=== PATIENT | female | born 1965 ===

== ENCOUNTER 2020-06-19 06:11 | Inpatient (IN) | payer OTHER, SELFPAY ==
[2020-06-19] VITALS (14 sets, daily range): BP systolic 147–202; BP diastolic 57–90; PULSE 78–130; RESP 14–28; TEMP 36.4–36.9; O2SAT 97–100; BMI 55.9
--- NOTE | ~2020-06-19 | XR_ITS ---
EXAMINATION: XR CHEST CLINICAL INFORMATION: Shortness of breath. Rule out pneumonia. COMPARISON: Report chest radiograph 08/04/2013. TECHNIQUE: 2 views of the chest were obtained. FINDINGS: Diffuse vascular indistinctness and fine pulmonary reticular opacities are present in the lungs. No focal pulmonary consolidation is identified. No effusions or pneumothoraces are visualized. Mild thickening of the minor fissure is visualized. The cardiomediastinal silhouette is normal in configuration. Multiple external artifacts overlie the thorax. Partial visualization is made of at least moderate multilevel endplate osteophytosis of the thoracic spine. XR/XR chest 2V IMPRESSION: Diffuse vascular indistinctness and fine pulmonary reticular opacities. Findings are suspicious for mild pulmonary edema. Diffuse infection could have a similar appearance, though the radiographic appearance of findings is most suspicious for pulmonary edema.
--- NOTE | ~2020-06-19 | CT_ITS ---
EXAMINATION: CT ANGIOGRAM OF THE CHEST WITH AND WITHOUT CONTRAST (CT PULMONARY ANGIOGRAM FOR PE) CLINICAL INFORMATION: Reason for Exam Chest pain, shortness of breath, elevated D-dimer, COMPARISON: Chest radiograph 06/19/2020 TECHNIQUE: Prior to contrast administration, noncontrast localization images were obtained. Subsequently, multidetector volumetric imaging was performed from the thoracic inlet to below the diaphragms following the administration of 71 mL Omnipaque 350 intravenous contrast. No contrast reaction reported Sagittal, coronal, and MIP oblique sagittal reformatted images were obtained on the CT workstation, uploaded to PACS, and reviewed. This CT examination was performed using dose optimization techniques as appropriate, variously including the following: *Automated exposure control *Adjustment of mA and/or kV according to patient size (this includes techniques or standardized protocols for targeted exams where dose is matched to indication/reason for exam; i.e. extremities or head) *Use of iterative reconstruction technique Total exam dose-length product 563.72 mGy-cm FINDINGS: QUALITY OF STUDY/CONTRAST BOLUS: Relatively suboptimal. There is adequate opacification to the proximal segmental level. Beyond, evaluation is limited. PULMONARY ARTERIES: No central or segmental pulmonary emboli. THORACIC AORTA: No aneurysm or dissection. LUNG: There is bilateral interlobular septal thickening with a basilar predominance. There are scattered regions of groundglass opacity with a central and dependent distribution in a somewhat wedge-shaped morphology which is relatively suggestive of regions of air trapping or alveolar edema. There are small bilateral pleural effusions with adjacent volume loss and opacity most likely representing atelectasis. There is mild smooth thickening of the medium-sized airways. At the lateral aspect of the left base there is a 6 mm nodular opacity (image 336, series 6) PLEURA: Trace bilateral pleural effusions, right greater than left. MEDIASTINUM: The heart is at the upper limits of normal for size. There is no pericardial effusion or pericardial thickening. No evidence of septal bowing or right heart strain. There are several mildly prominent mediastinal lymph nodes. For reference these include There is an AP window lymph node (image 18, series 5) which measures 1 cm short axis, right hilar lymph node which measures 1 cm short axis (image 22, series 5) and a left hilar lymph node which measures 1 cm short axis (image 176, series 6). There are mildly prominent pretracheal lymph nodes as well, however given streak artifact in the superior vena cava, exact dimensions are difficult to define. CHEST WALL/AXILLA: No axillary or internal mammary lymphadenopathy. OSSEOUS STRUCTURES: Moderate multilevel changes of the imaged thoracic spine. There is no acute or aggressive bony abnormality. UPPER ABDOMEN: Unremarkable. No reflux of contrast into the hepatic veins to suggest elevated right heart pressures. CT/CT angio chest PE protocol IMPRESSION: No evidence of suggest pulmonary embolus. There is bilateral interlobular septal thickening, regions of groundglass opacity and mild smooth airways thickening which together are suggestive of a combination of interstitial and alveolar edema. Atypical viral infections may be a consideration as well. Prominent nonspecific mediastinal and bilateral hilar lymph nodes which may be reactive. 6 mm left lower lobe nodule According to the UPDATED 2017 Fleischner Society recommendations, the advised follow-up imaging for a single 6-8 mm solid nodule is: LOW RISK PATIENT: CT at 6-12 months, then consider CT at 18-24 months. HIGH RISK PATIENT: CT at 6-12 months, then at 18-24 months.
--- NOTE | ~2020-06-19 | US_ITS ---
EXAMINATION: US VENOUS ULTRASOUND WITH DOPPLER LOWER EXTREMITY, LEFT CLINICAL INFORMATION: Chest pain, shortness of breath, left leg swelling. Assess for occult DVT. COMPARISON: Report left leg venous ultrasound with Doppler 11/10/2005. TECHNIQUE: Ultrasound of the deep veins is performed from the hip to the calf with compression sonography and color and pulse Doppler assessment. Spectral analysis with color-flow imaging is performed. Exam is technically challenging related to patient body habitus. Curvilinear transducer required for imaging in lieu of the standard linear transducer for these exams. FINDINGS: There is normal venous compression and respiratory variation and augmented flow. The visualized common femoral vein, superficial femoral vein, profunda femoral vein, popliteal vein, and the trifurcation region shows no evidence of deep venous thrombosis. There is no significant popliteal fossa cyst. If the patient's symptoms persist, followup ultrasound in 5 days 7 days might be of value to exclude proximal propagation from a non-visualized calf vein. US/US venous duplex LE LT IMPRESSION: 1. No DVT demonstrated in the left lower extremity. 2. Patient study limitations.
--- NOTE | 2020-06-19 06:36 | ECG_ITS ---
Test Reason : SOB/CP Blood Pressure : / mmHG Vent. Rate : 112 BPM Atrial Rate : 112 BPM P-R Int : 156 ms QRS Dur : 090 ms QT Int : 350 ms P-R-T Axes : 051 037 067 degrees QTc Int : 477 ms Sinus tachycardia Nonspecific ST abnormality Abnormal ECG No previous ECGs available Referred By: Generic ED Physician Electronically Signed By:CLEMENTE PERALTA MD
--- NOTE | 2020-06-19 06:40 | PC.NURSE ---
field technical assistant at bedside to obtain EKG. IV established, labs obtained and sent. Pt also reporting chronic cellulitis to left lower leg, for years. Awaiting primary MD carver.
[2020-06-19 06:43] LABS: Hematocrit 25.2 % (37-47); Mean Corpuscular Volume 69.4 fL (80-98); NRBC Pct Auto 0.2 /100WBC (0.0-0.2); Red Blood Count 3.63 X10*6/uL (4.20-5.50)
[2020-06-19 06:46] LABS: Basophils Percent Auto 0.4 % (0-2); Eosinophils Absolute Auto 0.4 X10*3/uL (0.0-0.4); Eosinophils Percent Auto 4.4 % (0-4); Imm Gran Abs Auto 0.04 X10*3/uL (0.00-0.03); Imm Gran Pct Auto 0.4 % (0.0-0.4); Lymphocytes Absolute Auto 2.2 X10*3/uL (1.2-4.9); Lymphocytes Percent Auto 23.5 % (20-40); Mean Corpuscular Hemoglobin 18.7 pg (27.0-33.0); Mean Platelet Volume 10.9 fL (9.4-12.3); Monocytes Absolute Auto 0.8 X10*3/uL (0.1-1.2); Monocytes Percent Auto 8.3 % (2-11); Neutrophils Absolute Auto 5.9 X10*3/uL (2.0-8.3); Platelet Count 230 X10*3/uL (160-400); Red Cell Distribution Width 19.1 % (11.0-16.0); White Blood Count 9.3 X10*3/uL (4.8-10.8)
[2020-06-19 07:10] LABS: Anion Gap 13 (12-20); Blood Urea Nitrogen 17 mg/dL (9-16); Calcium 8.2 mg/dL (8.4-10.2); Carbon Dioxide 22 mmol/L (22-29); Chloride 104 mmol/L (96-108); Creatinine Clr Calc Pharmacy 108.5; Estimated Glomerular Filt Rate > 60; Glucose Random 168 mg/dL (60-115); Potassium 3.6 mmol/L (3.3-5.1); Sodium 135 mmol/L (135-145)
[2020-06-19 07:16] LABS: Troponin-I High Sensitivity 6.5 ng/L (<3.5-17.0)
[2020-06-19 07:16] LABS: INTERNATIONAL NORM RATIO 1.2 (0.9-1.1); Prothrombin Time 13.9 SEC (10.8-13.0)
[2020-06-19 07:19] LABS: D Dimer 363 NG/ML; Partial Thromboplastin Time 29.3 SEC (24.1-38.0)
--- NOTE | 2020-06-19 07:42 | ED.CHESTPAIN ---
HPI - Chest Pain General Chief Complaint: Chest Pain Stated Complaint: SOB Time Seen by Provider: 06/19/20 06:43 Source: patient Mode of arrival: ambulatory Limitations: language barrier (Patient's 1st language is Bulgarian, the [employer] assembly line worker was used to obtain history) History of Present Illness HPI narrative: 55-year-old female who presents emergency department for evaluation of chest pain and shortness of breath. She states the symptoms began yesterday at 5:00 p.m.. She states that she woke up from sleep with a tightness in her sternal area of her chest. She states that the tightness was intermittent and would last seconds. The tightness however would come on with minimal exertion. She also felt significant dyspnea on exertion with only minimal exertion. The pain did not radiate to her neck, jaw, arms or back. She had no associated lightheadedness, dizziness, diaphoresis, nausea or vomiting. She states that her episodes persisted therefore she came to the emergency department for evaluation. Patient states she has gained 40 lb over the last several months. She has a history of cellulitis of left lower extremity and she states her left leg is always slightly swollen compared to the right and her skin is always red on the left compared to the right. The patient states that she does have a history of anemia secondary to vaginal bleeding. She states that she gets head every menstrual periods each month but did not have a menstrual period last month. She states that she is taking iron supplements. The patient does have a history of hypertension hypothyroidism but is noncompliant with her medications. She also states that in November of 2019 she was seen at [facility] for dizziness and had a negative workup including an MRI. Related Data Home Medications Medication Instructions Recorded Confirmed amlodipine 1 tab PO DAILY 06/19/20 06/19/20 aspirin 1 tab PO DAILY 06/19/20 06/19/20 ferrous sulfate 1 tab PO DAILY 06/19/20 06/19/20 meclizine 1 tab PO TID PRN 06/19/20 06/19/20 Allergies Allergy/AdvReac Type Severity Reaction Status Date / Time No Known Allergies Allergy Verified 06/19/20 12:12 Review of Systems Review of Systems: Yes all other systems are reviewed and are negative Neurologic: Reports Abnormal speech present [facility] Past Medical History [facility] Narrative: Patient has a history of hypertension, hypothyroidism, anemia, cellulitis of the left lower extremity. She had a bilateral tubal ligation. She denies tobacco, alcohol and drug use. Medical History (Updated 06/19/20 @ 06:24 by Idania Camargo) Hypertension Vertigo Social History Social History Alcohol intake: unknown Smoked in Last 30 Days: No Use of substances other than those prescribed or required for medical reasons: No Advance Directives: No Physical Exam Vital Signs: Vital Signs: Last Vital Signs Temp 98.3 F 06/19/20 11:01 Pulse 78 06/19/20 12:11 Resp 20 06/19/20 12:11 BP 160/57 H 06/19/20 12:11 Pulse Ox 99 06/19/20 12:11 Body Mass Index 55.9 Const: General: cooperative Nutritional Appearance: obese morbidly obese Orientation/consciousness: oriented to person and oriented to place Limitations: no limitations HENMT: Head: Yes normal to inspection, Yes normocephalic and Yes atraumatic Ears: external ears normal General nose exam: Normal external nose present Face and sinus: Yes normal facial exam Mouth: Normal oral and palatal mucosa present Throat: Yes posterior oropharynx normal Eyes: Periorbital: periorbital findings normal Eyelids: Yes eyelids normal Conjunctivae: conjunctivae normal Sclerae: sclerae normal Corneas: corneas normal Pupils: Equal, round and reactive pupils present Direct Ophthalmoscopy: normal light reflex Neck: Neck: Yes full ROM, Yes no lymphadenopathy, Yes no meningeal signs, Yes trachea midline and Yes supple Chest: Chest palpation & inspection: normal inspection of the chest and normal palpation of entire chest wall Resp: Effort & Inspection: normal respiratory effort and able to speak in complete sentences Auscultation: clear to auscultation bilaterally Cardio: Rate: regular rate Rhythm: regular rhythm Heart sounds: S1 normal heart sound present, S2 normal heart sound present and no murmurs GI: Inspection: Yes normal to inspection Palpation (GI): Soft to palpation, nontender, no guarding, not rigid and No hepatosplenomegaly present Rectal Exam - Female: heme negative stool (Brown stool) : General: Yes no CVA tenderness Back/Spine/Pelvis: Back: no CVA tenderness Cervical Spine: normal cervical lordosis Thoracic/Lumbar Spine: thoracic and lumbar spine normal to inspection Skin: Lesions: no lesions Rashes: no rashes Wounds: no wounds Neuro: General: oriented to person, oriented to place and no meningeal signs Cranial nerves: Yes CN's II-XII intact bilaterally and Yes Equal, round and reactive pupils present Cognition (Neuro): normal cognition Speech: Abnormal speech present Motor exam (neuro): 5/5 motor strength present throughout Extrem: Other: Left lower extremity appears to be larger than the right, there is trace to 1+ tense pitting edema bilaterally symmetric, the left pretibial area appears to be erythematous compared to the right but is not warm to the touch. General: Yes full ROM Psych: Appearance: well kempt Mental Status: mental status grossly normal Speech and movement: Normal speech and movement present Affect: normal affect Attitude: cooperative Thought process: Normal thought process present Thought content: Normal thought content present Course Course Course Narrative: 55-year-old female with a history of hypertension, hypothyroidism anemia and cellulitis who has been noncompliant with her medications for at least 1-2 months who presents emergency department for evaluation of sudden onset of chest pain that occurred yesterday at 5:00 p.m.. The pain is intermittent, worse with breathing and she has associated dyspnea on exertion. Physical examination did reveal a morbidly obese woman who did have trace to 1+ pitting edema bilaterally symmetric with left lower extremity being slightly larger than the right with no evidence of cellulitis. I did order a CBC, CMP, TSH, D-dimer, troponin, EKG, chest x-ray, COVID swab on this patient. 0748: The patient is anemic with an H&H of 6.8 and 25.2, this is similar to an H&H of 6.8 and 25, dated 10/24/2019. The patient however is symptomatic with dyspnea on exertion and chest pain. The patient's initial high sensitivity troponin detectable but not elevated at 6.5. I will repeat this in 3 hours. Patient also has an elevated D-dimer therefore I ordered a CTA PE protocol to rule out PE and a left lower extremity duplex ultrasound to rule out DVT. I also ordered a type and screen on the patient. 1200: The patient's laboratory evaluation did reveal a detectable troponin of 6.5, 3 hour troponin was elevated to 9.9 which is greater than 50% change. This suggests that the patient may have had some myocardial injury possibly secondary to her anemia. The patient's TSH is high but she has been noncompliant with her thyroid medications. Doppler ultrasound of her left lower extremity revealed no DVT. The patient's CT angiogram PE protocol did not reveal any pulmonary embolism however patient does have increase interstitial markings in his suspect that she may have mild CHF. Her COVID-19 test was negative. The patient did agree to receiving 1 unit of packed red blood cells. I did order Lasix 40 mg IV as well. I will discuss the patient's presentation with the covering hospitalist. 1218: I did discuss the patient's presentation with the hospitalist Patricia Camacho and the patient will be admitted for further treatment and evaluation. MDM - Chest Pain Lab Data Result diagrams: 06/19/20 06:38 06/19/20 06:38 Labs: Lab Results 06/19/20 06/19/20 06/19/20 Range/Units 06:38 06:38 06:38 WBC 9.3 (4.8-10.8) X10*3/uL RBC 3.63 L (4.20-5.50) X10*6/uL Hgb 6.8 L* (12.0-16.0) g/dl Hct 25.2 L (37-47) % MCV 69.4 L (80-98) fL MCH 18.7 L (27.0-33.0) pg MCHC 27.0 L (31.0-35.0) g/dl RDW 19.1 H (11.0-16.0) % Plt Count 230 (160-400) X10*3/uL MPV 10.9 (9.4-12.3) fL Immature Gran % (Auto) 0.4 (0.0-0.4) % Neut % (Auto) 63.0 (45-73) % Lymph % (Auto) 23.5 (20-40) % [place] % (Auto) 8.3 (2-11) % Eos % (Auto) 4.4 H (0-4) % Baso % (Auto) 0.4 (0-2) % Lymph # (Auto) 2.2 (1.2-4.9) X10*3/uL [place] # (Auto) 0.8 (0.1-1.2) X10*3/uL Eos # (Auto) 0.4 (0.0-0.4) X10*3/uL Baso # (Auto) 0.0 (0.0-0.2) X10*3/uL Abs Immat Gran (auto) 0.04 H (0.00-0.03) X10*3/uL Absolute Neuts (auto) 5.9 (2.0-8.3) X10*3/uL Absolute Nucleated RBC 0.020 H (0.0-0.012) X10*3/uL Nucleated RBC % (auto) 0.2 (0.0-0.2) /100WBC Smear Tech's Comments Not Reportable PT (10.8-13.0) SEC INR (0.9-1.1) APTT (24.1-38.0) SEC D-Dimer NG/ML Hold Blue Top SEE NOTE Sodium 135 (135-145) mmol/L Potassium 3.6 (3.3-5.1) mmol/L Chloride 104 (96-108) mmol/L Carbon Dioxide 22 (22-29) mmol/L Anion Gap 13 (12-20) BUN 17 H (9-16) mg/dL Creatinine 0.85 (0.5-1.4) mg/dL Estim Creat Clear Calc 108.5 Estimated GFR > 60 Random Glucose 168 H (60-115) mg/dL Calcium 8.2 L (8.4-10.2) mg/dL Troponin I High Sens (<3.5-17.0) ng/L TSH 7.95 H (0.32-4.0) uIU/mL COVID-19 (GUERO) COVID-19 Clin Com Blood Type Antibody Screen Crossmatch 06/19/20 06/19/20 06/19/20 Range/Units 06:38 06:42 08:25 WBC (4.8-10.8) X10*3/uL RBC (4.20-5.50) X10*6/uL Hgb (12.0-16.0) g/dl Hct (37-47) % MCV (80-98) fL MCH (27.0-33.0) pg MCHC (31.0-35.0) g/dl RDW (11.0-16.0) % Plt Count (160-400) X10*3/uL MPV (9.4-12.3) fL Immature Gran % (Auto) (0.0-0.4) % Neut % (Auto) (45-73) % Lymph % (Auto) (20-40) % [place] % (Auto) (2-11) % Eos % (Auto) (0-4) % Baso % (Auto) (0-2) % Lymph # (Auto) (1.2-4.9) X10*3/uL [place] # (Auto) (0.1-1.2) X10*3/uL Eos # (Auto) (0.0-0.4) X10*3/uL Baso # (Auto) (0.0-0.2) X10*3/uL Abs Immat Gran (auto) (0.00-0.03) X10*3/uL Absolute Neuts (auto) (2.0-8.3) X10*3/uL Absolute Nucleated RBC (0.0-0.012) X10*3/uL Nucleated RBC % (auto) (0.0-0.2) /100WBC Smear Tech's Comments PT 13.9 H (10.8-13.0) SEC INR 1.2 H (0.9-1.1) APTT 29.3 (24.1-38.0) SEC D-Dimer 363 NG/ML Hold Blue Top Sodium (135-145) mmol/L Potassium (3.3-5.1) mmol/L Chloride (96-108) mmol/L Carbon Dioxide (22-29) mmol/L Anion Gap (12-20) BUN (9-16) mg/dL Creatinine (0.5-1.4) mg/dL Estim Creat Clear Calc Estimated GFR Random Glucose (60-115) mg/dL Calcium (8.4-10.2) mg/dL Troponin I High Sens 6.5 (<3.5-17.0) ng/L TSH (0.32-4.0) uIU/mL COVID-19 (GUERO) Cancelled COVID-19 Clin Com Cancelled Blood Type Antibody Screen Crossmatch 06/19/20 06/19/20 06/19/20 Range/Units 08:33 09:10 09:57 WBC (4.8-10.8) X10*3/uL RBC (4.20-5.50) X10*6/uL Hgb (12.0-16.0) g/dl Hct (37-47) % MCV (80-98) fL MCH (27.0-33.0) pg MCHC (31.0-35.0) g/dl RDW (11.0-16.0) % Plt Count (160-400) X10*3/uL MPV (9.4-12.3) fL Immature Gran % (Auto) (0.0-0.4) % Neut % (Auto) (45-73) % Lymph % (Auto) (20-40) % [place] % (Auto) (2-11) % Eos % (Auto) (0-4) % Baso % (Auto) (0-2) % Lymph # (Auto) (1.2-4.9) X10*3/uL [place] # (Auto) (0.1-1.2) X10*3/uL Eos # (Auto) (0.0-0.4) X10*3/uL Baso # (Auto) (0.0-0.2) X10*3/uL Abs Immat Gran (auto) (0.00-0.03) X10*3/uL Absolute Neuts (auto) (2.0-8.3) X10*3/uL Absolute Nucleated RBC (0.0-0.012) X10*3/uL Nucleated RBC % (auto) (0.0-0.2) /100WBC Smear Tech's Comments PT (10.8-13.0) SEC INR (0.9-1.1) APTT (24.1-38.0) SEC D-Dimer NG/ML Hold Blue Top Sodium (135-145) mmol/L Potassium (3.3-5.1) mmol/L Chloride (96-108) mmol/L Carbon Dioxide (22-29) mmol/L Anion Gap (12-20) BUN (9-16) mg/dL Creatinine (0.5-1.4) mg/dL Estim Creat Clear Calc Estimated GFR Random Glucose (60-115) mg/dL Calcium (8.4-10.2) mg/dL Troponin I High Sens 9.9 D (<3.5-17.0) ng/L TSH (0.32-4.0) uIU/mL COVID-19 (GUERO) Negative COVID-19 Clin Com See Note Blood Type A Positive Antibody Screen NEGATIVE Crossmatch See Detail Discharge Plan Discharge Prescriptions: No Action amlodipine 2.5 mg tablet 1 tab PO DAILY RF: 0 aspirin 81 mg tablet,delayed release (DR/EC) 1 tab PO DAILY RF: 0 meclizine 25 mg tablet 1 tab PO TID PRN (Reason: dizziness) RF: 0 ferrous sulfate 325 mg (65 mg iron) tablet 1 tab PO DAILY RF: 0
--- NOTE | 2020-06-19 08:00 | PC.NURSE ---
report received from Idania GUSMAN. Patient arrived complaining of SOB and chest tightness with exertion. Patient is alert and oriented. Tachycardic in 120-130's when walking to room. Patient reports vaginal bleeding x 2 years, but stopped last months. Reports as heavy with clots, but only going through ~ 3 pads per day. IV established by prior RN. Provider at bedside. Stool occult sample collected and negative. Patient reports comfort while resting on stretcher. Second IV established in right wrist at this time. Pharmacy Delivery Driver at bedside to discuss plan of care.
[2020-06-19 08:28] LABS: Hemoglobin 6.8 g/dl (12.0-16.0)
[2020-06-19 08:30] LABS: Thyroid Stimulating Hormone 7.95 uIU/mL (0.32-4.0)
[2020-06-19 09:31] LABS: COVID-19 Test Negative (Negative)
--- NOTE | 2020-06-19 10:01 | PC.NURSE ---
Repeat Troponin drawn by lead pharmacy technician. Patient tolerated well. Patient consents to blood transfusion, awaiting blood bank at this time. Patient reports comfort. VSS. No SOB while resting on stretcher. Will continue to monitor.
--- NOTE | 2020-06-19 10:48 | PC.NURSE ---
Teresa RN at bedside with this RN. Patient identification and blood checked per protocol. Vitals taken. Lungs clear throughout. Signed consent form on file. Patient educated on signs and symptoms of transfusion reaction. Resting comfortably on stretcher at this time. This RN will remain at bedside for first 15 minutes.
[2020-06-19 11:23] LABS: Troponin-I High Sensitivity 9.9 ng/L (<3.5-17.0)
--- NOTE | 2020-06-19 11:32 | PC.NURSE ---
PT TOLERATING BLOOD TRANSFUSION WELL AT THIS TIME, NO COMPLAINTS OFFERED. REPORTS SHE HAS NOT HAD A PCP, AND HAS NOT TAKEN ANY OF HER RXS IN ABOUT 2 MONTHS. MED REC COMPLETED TO REFLECT THIS.
[2020-06-19] MEDS: Furosemide 20 MG/2 ML VIAL IVPUSH (12:12)
[2020-06-19 13:04] LABS: B Type Natriuretic Peptide 90 pg/mL (<100)
--- NOTE | 2020-06-19 13:48 | P.HPHOSP_ITS ---
History of Present Illness Date of Service: 06/19/20 Chief Complaint: dyspnea This is a 45-year-old female who presents to the emergency department with dyspnea. For the past few weeks she has reported dyspnea on exertion. She also reports chest tightness with exertion and deep inspiration. She denies orthopnea, but she sleeps on an incline which she has been doing for the past several years. She has gained 40 lb over the past several months. Lab work reveals H/H of 6.8/45.2. She reports heavy periods every month. She has never seen [facility] expert [facility] for workup. Troponin 6.5, repeat 9.9. TSH 7.95. Imaging suggestive of pulmonary edema. She was given a dose of IV Lasix. Blood pressure also noted to be elevated. Patient reports not taking her blood pressure medicine for the past 2 months. Review of Systems Review of Systems: Yes all other systems are reviewed and are negative Constitutional: Constitutional: Denies chills and Denies fever(s) Cardiovascular: Cardiovascular: Reports dyspnea on exertion Respiratory: Respiratory: Denies cough and Reports dyspnea on exertion Gastrointestinal: Gastrointestinal: Denies abdominal pain Genitourinary: Genitourinary: Reports menorrhagia [facility] Medical History (Updated 06/19/20 @ 14:01 by TOSIN Epps) Hypertension Menorrhagia Morbid obesity with BMI of 50.0-59.9, adult Vertigo Functional capacity: independent ambulation Family History Other No cardiac disease Family history: reviewed and not pertinent Surgical History (Updated 06/19/20 @ 14:01 by TOSIN Epps) H/O tubal ligation Social History (Updated 06/19/20 @ 14:01 by TOSIN Epps) Alcohol intake: never Smoking Status: Never smoker Smoked in Last 30 Days: No Use of substances other than those prescribed or required for medical reasons: No Advance Directives: No Meds Allergies Allergy/AdvReac Type Severity Reaction Status Date / Time No Known Allergies Allergy Verified 06/19/20 12:12 Active Medications: Current Medications Generic Name Dose Route Start Last Admin Trade Name Freq PRN Reason Stop Dose Admin Amlodipine Besylate 10 mg 06/19/20 13:45 Amlodipine Besylate 5 Mg Tablet PO DAILY [facility] Protocol Pharmacy Consult 1 each 06/19/20 12:21 Consult Rx Perform Med Rec MISCELLANE ONCE PRN Consult order Home Medications Medication Instructions Recorded Confirmed Last Taken Type amlodipine 1 tab PO DAILY 06/19/20 06/19/20 2 Months Ago History ~04/21/20 aspirin 1 tab PO DAILY 06/19/20 06/19/20 2 Months Ago History ~04/21/20 ferrous sulfate 1 tab PO DAILY 06/19/20 06/19/20 2 Months Ago History ~04/21/20 meclizine 1 tab PO TID PRN 06/19/20 06/19/20 2 Months Ago History ~04/21/20 Physical Exam Vital Signs and Narrative: Vital Signs: Last Vital Signs Temp 98.3 F 06/19/20 11:01 Pulse 83 06/19/20 13:01 Resp 16 06/19/20 13:01 BP 190/90 H 06/19/20 13:01 Pulse Ox 99 06/19/20 12:11 Body Mass Index 55.9 Const: General: comfortable, no acute distress, alert and awake Nutritional Appearance: obese Orientation/consciousness: patient oriented x3 HENMT: Head: Yes normocephalic and Yes atraumatic Eyes: Sclerae: sclerae normal Chest: Chest palpation & inspection: normal inspection of the chest Resp: Effort & Inspection: normal respiratory effort and no respiratory distress Auscultation: clear to auscultation bilaterally Cardio: Rate: regular rate Rhythm: regular rhythm GI: Palpation (GI): Soft to palpation and nontender Skin: General skin exam: no rashes or lesions noted Neuro: General: patient oriented x3 Cranial nerves: Yes CN's II-XII intact bilaterally and Yes Bilaterally intact EOM present Extrem: Other: b/l pitting edema General: Yes normal to inspection Results Labs CBC and Chem 7: 06/19/20 06:38 06/19/20 06:38 Labs: Laboratory Results - last 24 hr 06/19/20 06/19/20 06/19/20 06:38 06:38 06:38 MCV 69.4 L MCH 18.7 L MCHC 27.0 L RDW 19.1 H Plt Count 230 MPV 10.9 Immature Gran % (Auto) 0.4 Neut % (Auto) 63.0 Lymph % (Auto) 23.5 [place] % (Auto) 8.3 Eos % (Auto) 4.4 H Baso % (Auto) 0.4 Lymph # (Auto) 2.2 [place] # (Auto) 0.8 Eos # (Auto) 0.4 Baso # (Auto) 0.0 Abs Immat Gran (auto) 0.04 H Absolute Neuts (auto) 5.9 Absolute Nucleated RBC 0.020 H Nucleated RBC % (auto) 0.2 Smear Tech's Comments Not Reportable PT INR APTT D-Dimer Hold Blue Top SEE NOTE Anion Gap 13 Estim Creat Clear Calc 108.5 Estimated GFR > 60 Random Glucose 168 H Calcium 8.2 L Troponin I High Sens B-Natriuretic Peptide TSH 7.95 H COVID-19 ([facility]ERO) COVID-19 Clin Com Blood Type Antibody Screen Crossmatch 06/19/20 06/19/20 06/19/20 06:38 06:42 08:25 MCV MCH MCHC RDW Plt Count MPV Immature Gran % (Auto) Neut % (Auto) Lymph % (Auto) [place] % (Auto) Eos % (Auto) Baso % (Auto) Lymph # (Auto) [place] # (Auto) Eos # (Auto) Baso # (Auto) Abs Immat Gran (auto) Absolute Neuts (auto) Absolute Nucleated RBC Nucleated RBC % (auto) Smear Tech's Comments PT 13.9 H INR 1.2 H APTT 29.3 D-Dimer 363 Hold Blue Top Anion Gap Estim Creat Clear Calc Estimated GFR Random Glucose Calcium Troponin I High Sens 6.5 B-Natriuretic Peptide TSH COVID-19 (GUERO) Cancelled COVID-19 Clin Com Cancelled Blood Type Antibody Screen Crossmatch 06/19/20 06/19/20 06/19/20 08:33 09:10 09:57 MCV MCH MCHC RDW Plt Count MPV Immature Gran % (Auto) Neut % (Auto) Lymph % (Auto) [place] % (Auto) Eos % (Auto) Baso % (Auto) Lymph # (Auto) [place] # (Auto) Eos # (Auto) Baso # (Auto) Abs Immat Gran (auto) Absolute Neuts (auto) Absolute Nucleated RBC Nucleated RBC % (auto) Smear Tech's Comments PT INR APTT D-Dimer Hold Blue Top Anion Gap Estim Creat Clear Calc Estimated GFR Random Glucose Calcium Troponin I High Sens 9.9 D B-Natriuretic Peptide 90 TSH COVID-19 (GUERO) Negative COVID-19 Clin Com See Note Blood Type A Positive Antibody Screen NEGATIVE Crossmatch See Detail Imaging Radiologist's Impressions: Impressions Chest X-Ray 06/19/20 06:53 IMPRESSION: Diffuse vascular indistinctness and fine pulmonary reticular opacities. Findings are suspicious for mild pulmonary edema. Diffuse infection could have a similar appearance, though the radiographic appearance of findings is most suspicious for pulmonary edema. Chest CTA 06/19/20 07:40 IMPRESSION: No evidence of suggest pulmonary embolus. There is bilateral interlobular septal thickening, regions of groundglass opacity and mild smooth airways thickening which together are suggestive of a combination of interstitial and alveolar edema. Atypical viral infections may be a consideration as well. Prominent nonspecific mediastinal and bilateral hilar lymph nodes which may be reactive. 6 mm left lower lobe nodule According to the UPDATED 2017 Fleischner Society recommendations, the advised follow-up imaging for a single 6-8 mm solid nodule is: LOW RISK PATIENT: CT at 6-12 months, then consider CT at 18-24 months. HIGH RISK PATIENT: CT at 6-12 months, then at 18-24 months. Venous Duplex 06/19/20 07:40 IMPRESSION: 1. No DVT demonstrated in the left lower extremity. 2. Patient study limitations. Assessment and Plan (1) Chest pain: Qualifiers: Chest pain type: unspecified Qualified Code(s): R07.9 - Chest pain, unspecified Status: Acute (2) Anemia: Qualifiers: Anemia type: iron deficiency Iron deficiency anemia type: unspecified iron deficiency Qualified Code(s): D50.9 - Iron deficiency anemia, unspecified Status: Acute (3) Elevated troponin: Status: Acute (4) CHF (congestive heart failure): Qualifiers: Heart failure chronicity: acute Heart failure type: unspecified Qualified Code(s): I50.9 - Heart failure, unspecified Status: Acute This is a 55-year-old Telugu-speaking female with a history of hypertension, menorrhagia presents to the emergency department with dyspnea and chest tightness found to have anemia Symptomatic anemia anemia chronic r/t menorrhagia No active bleeding. H/H similar to previous from October 2019 -1U blood transfused in ED -follow CBC -will need outpatient [employer] evaluation Dyspnea Likely multifactorial ?high output failure in setting of anemia, uncontrolled HTN, morbid obesity with significant recent weight gain pulmonary edema on imaging although BNP 90, ?falsely low due to obesity CTA neg for PE Trop 6.5, 9.9 -echo -trend troponin -continue IV diuresis based on clinical response HTN Uncontrolled in the setting of medication noncompliance -resume Norvasc at higher dose, 10 mg daily -monitor blood pressure closely, may need additional agent Hypothyroidism Non-compliant with meds TSH 7.95 -check free t4 Pulmonary nodule -outpatient follow up imaging Morbid obesity BMI 56.0 Likely contributing to dyspnea Likely underlying undiagnosed SASCHA, consider outpatient sleep study dvt ppx - mechanical devices code status - full code this case was discussed with Dr. cabrera
[2020-06-19 14:01] LABS: MANUAL DIFF FLAG NO
[2020-06-19 14:04] LABS: Basophils Percent Auto 0.4 % (0-2); Eosinophils Absolute Auto 0.3 X10*3/uL (0.0-0.4); Eosinophils Percent Auto 3.6 % (0-4); Hematocrit 30.2 % (37-47); Hemoglobin 8.4 g/dl (12.0-16.0); Imm Gran Abs Auto 0.05 X10*3/uL (0.00-0.03); Imm Gran Pct Auto 0.5 % (0.0-0.4); Lymphocytes Absolute Auto 2.3 X10*3/uL (1.2-4.9); Lymphocytes Percent Auto 24.5 % (20-40); Mean Corpuscular HGB Conc 27.8 g/dl (31.0-35.0); Mean Corpuscular Hemoglobin 19.8 pg (27.0-33.0); Mean Corpuscular Volume 71.2 fL (80-98); Monocytes Absolute Auto 0.7 X10*3/uL (0.1-1.2); Monocytes Percent Auto 7.5 % (2-11); NRBC Pct Auto 0.2 /100WBC (0.0-0.2); Neutrophils Absolute Auto 5.9 X10*3/uL (2.0-8.3); Neutrophils Percent Auto 63.5 % (45-73); Platelet Count 247 X10*3/uL (160-400); Red Blood Count 4.24 X10*6/uL (4.20-5.50); Red Cell Distribution Width 20.3 % (11.0-16.0); White Blood Count 9.3 X10*3/uL (4.8-10.8)
[2020-06-19] MEDS: amLODIPine Besylate 5 MG TABLET 10 MG PO (14:07)
--- NOTE | 2020-06-19 14:27 | PC.NURSE ---
PT CURRENTLY DENIES ANY CP, DESCRIBES FEELING CHEST PRESSURE WHILE AMBULATING, NO CHANGES AT REST. PT HAS AMBULATED TO THE BATHROOM, STEADILY, INDEPENDENTLY. CURRENTLY EATING LUNCH. NO COMPLAINTS OR CONCERNS OFFERED. AWAITING BED ASSIGNMENT.
[2020-06-19 14:33] LABS: Free T4 (Free Thyroxine) 0.83 ng/dL (0.71-1.85)
[2020-06-19 15:18] LABS: Troponin-I High Sensitivity 13.7 ng/L (<3.5-17.0)
[2020-06-19] MEDS: 0.9 % Sodium Chloride Flush 3 ML SYRINGE IVFLUSH ×2 (17:14→22:46)
--- NOTE | 2020-06-19 19:43 | PC.NURSE ---
CALLED [facility] TO GIVE REPORT, EXPECTING CALL BACK
--- NOTE | 2020-06-19 20:52 | PC.NURSE ---
ls remain clear. pt comfortable, no complaints offered. awaiting transport to floor
[2020-06-20 03:41] VITALS: BP 150/69; PULSE 77; RESP 16; TEMP 36.6; O2SAT 97
[2020-06-20 06:46] LABS: MANUAL DIFF FLAG NO
[2020-06-20 06:53] LABS: Basophils Absolute Auto 0.1 X10*3/uL (0.0-0.2); Basophils Percent Auto 0.5 % (0-2); Eosinophils Absolute Auto 0.5 X10*3/uL (0.0-0.4); Eosinophils Percent Auto 5.7 % (0-4); Hematocrit 27.6 % (37-47); Hemoglobin 7.6 g/dl (12.0-16.0); Imm Gran Abs Auto 0.03 X10*3/uL (0.00-0.03); Imm Gran Pct Auto 0.3 % (0.0-0.4); Lymphocytes Absolute Auto 2.7 X10*3/uL (1.2-4.9); Mean Corpuscular HGB Conc 27.5 g/dl (31.0-35.0); Mean Corpuscular Hemoglobin 19.6 pg (27.0-33.0); Mean Corpuscular Volume 71.3 fL (80-98); Mean Platelet Volume 11.7 fL (9.4-12.3); Monocytes Absolute Auto 0.9 X10*3/uL (0.1-1.2); Monocytes Percent Auto 10.1 % (2-11); Neutrophils Percent Auto 54.4 % (45-73); Platelet Count 246 X10*3/uL (160-400); Red Blood Count 3.87 X10*6/uL (4.20-5.50); White Blood Count 9.2 X10*3/uL (4.8-10.8)
[2020-06-20 07:19] LABS: Anion Gap 11 (12-20); Blood Urea Nitrogen 17 mg/dL (9-16); Calcium 8.3 mg/dL (8.4-10.2); Carbon Dioxide 26 mmol/L (22-29); Chloride 103 mmol/L (96-108); Creatinine Clr Calc Pharmacy 113.9; Estimated Glomerular Filt Rate > 60; Glucose Random 113 mg/dL (60-115); Potassium 4.1 mmol/L (3.3-5.1); Sodium 136 mmol/L (135-145)
[2020-06-20 08:00] VITALS: BP 142/60; PULSE 79; RESP 16; TEMP 36.6; O2SAT 97
[2020-06-20] MEDS: 0.9 % Sodium Chloride Flush 3 ML SYRINGE IVFLUSH ×2 (08:06→17:12)
[2020-06-20] MEDS: Ferrous Sulfate 324 MG TABLET.DR PO (08:06)
[2020-06-20] MEDS: amLODIPine Besylate 5 MG TABLET 10 MG PO (08:06)
--- NOTE | 2020-06-20 11:03 | MHC.CM.PN ---
dc plan home no servceis ,pt has own transportation home
--- NOTE | 2020-06-20 11:56 | P.CDIC_ITS ---
CDI Concurrent Query Service Date: 06/20/20 Documentation Clarification: Please clarify if you are treating a proba ble/suspected/likely or confirmed: Specifics: Acute on chronic diastolic and/or systolic CHF Chronic diastolic and/or systolic CHF Please specify if known or other Unknown at this time. Work up in progress. Provider Response: Other Other Diagnosis: Unknown yet, work up in progress PLEASE DO NOT DELETE/MODIFY EXISTING CONTENT Additional information is needed in order to code to the highest accuracy and appropriate Severity of Illness (SOI). Please clarify the information noted mike davis in your progress notes and discharge summary. Risk Factors/Clinical Indicators/Treatments Assessment - CHF, unspecified IV Lasix Edema, OLMSTEAD, SOB, gained 40lbs over a month, pitting edema, pulmonary edema, may have CHF Morbid obesity BMI 56 CDS: Feli Galarza CCS, [facility]IS Contact Number: [phone] Please Review the information above and exercise your independent professional judgment in responding to the query. If you concur, pleas document in the PROGRESS NOTES and DISCHARGE SUMMARY. If you do not agree with the query, please document in the query above. THIS QUERY IS PART OF THE PERMANENT MEDICAL RECORD
[2020-06-20 12:00] VITALS: BP 173/81; PULSE 81; RESP 20; TEMP 37.2; O2SAT 100
--- NOTE | 2020-06-20 12:19 | HO.PM.IMPN ---
Subjective Subjective Date of Service: 06/20/20 Interval History: Follow-up symptomatic anemia, dyspnea Shortness of breath resolved, no chest pain or No vaginal bleeding No overnight events Review of Systems Review of Systems: Yes all other systems are reviewed and are negative Constitutional Constitutional: Denies chills and Denies fever(s) Cardiovascular Cardiovascular: Denies chest pain Respiratory Respiratory: Denies cough Gastrointestinal Gastrointestinal: Denies abdominal pain Neurologic Neurologic: Reports Abnormal speech present Physical Exam Vital Signs: Vital Signs: Last Vital Signs Temp 98.9 F 06/20/20 12:00 Pulse 81 06/20/20 12:00 Resp 20 06/20/20 12:00 BP 173/81 H 06/20/20 12:00 Pulse Ox 100 06/20/20 12:00 Body Mass Index 55.9 Const: General: comfortable, no acute distress, alert and awake Nutritional Appearance: obese Orientation/consciousness: patient oriented x3 HENMT: Head: Yes normocephalic and Yes atraumatic Eyes: Sclerae: sclerae normal Chest: Chest palpation & inspection: normal inspection of the chest Resp: Effort & Inspection: normal respiratory effort and no respiratory distress Auscultation: clear to auscultation bilaterally Cardio: Rate: regular rate Rhythm: regular rhythm GI: Palpation (GI): Soft to palpation and nontender Skin: General skin exam: no rashes or lesions noted Neuro: General: patient oriented x3 Cranial nerves: Yes CN's II-XII intact bilaterally and Yes Bilaterally intact EOM present Speech: Abnormal speech present Extrem: General: Yes normal to inspection Objective Data Current Medications Generic Name Dose Route Start Last Admin Trade Name Freq PRN Reason Stop Dose Admin Acetaminophen 650 mg 06/19/20 14:03 Acetaminophen 325 Mg Tablet PO Q6H PRN Pain, Mild (Pain Scale 1-3) Amlodipine Besylate 10 mg 06/19/20 13:45 06/20/20 08:06 Amlodipine Besylate 5 Mg Tablet PO 10 mg DAILY LANI Administration Protocol Docusate Sodium 100 mg 06/19/20 14:03 Docusate Sodium 100 Mg Capsule PO DAILY PRN Constipation Ferrous Sulfate 324 mg 06/20/20 09:00 06/20/20 08:06 Ferrous Sulfate 324 Mg Tablet. PO 324 mg DAILY LANI Administration Ondansetron HCl 4 mg 06/19/20 14:03 Ondansetron Hcl 4 Mg/2 Ml Vial IVPUSH Q8H PRN Nausea and Vomiting Pharmacy Consult 1 each 06/19/20 12:21 Consult Rx Perform Med Rec MISCELLANE ONCE PRN Consult order Sodium Chloride 3 ml 06/19/20 16:00 06/20/20 08:06 0.9 % Sodium Chloride Flush 3 Ml Syringe IVFLUSH 3 ml QSHIFT LANI Administration Labs CBC & Chem 7: 06/20/20 05:26 06/20/20 05:26 Assessment and Plan (1) Chest pain: Status: Acute (2) Anemia: Status: Acute (3) Elevated troponin: Status: Acute (4) CHF (congestive heart failure): Status: Acute Assessment and Plan: This is a 55-year-old [place] Citizen-speaking female with a history of hypertension, menorrhagia presents to the emergency department with dyspnea and chest tightness found to have anemia Symptomatic anemia anemia chronic r/t menorrhagia No active bleeding. H/H similar to previous from October 2019 -s/p 1U blood transfused in ED 06/19 -follow CBC -will need outpatient [employer] C[employer]WYER evaluation Dyspnea Likely multifactorial ?high output failure in setting of anemia, uncontrolled HTN, morbid obesity with significant recent weight gain pulmonary edema on imaging although BNP 90, ?falsely low due to obesity CTA neg for PE Trop 6.5, 9.9, 13.7 likely demand in the setting of anemia -echo pending -continue IV diuresis based on clinical response HTN Uncontrolled in the setting of medication noncompliance -resume Norvasc at higher dose, 10 mg daily -monitor blood pressure closely, may need additional agent Hypothyroidism Non-compliant with meds TSH 7.95 -check free t4 Pulmonary nodule -outpatient follow up imaging Morbid obesity BMI 56.0 Likely contributing to dyspnea Likely underlying undiagnosed SASCHA, consider outpatient sleep study dvt ppx - mechanical devices code status - full code this case was discussed with Dr. cabrera
[2020-06-20] MEDS: Furosemide 40 MG/4 ML VIAL IVPUSH (13:16)
[2020-06-20 13:24] LABS: Hematocrit 30.7 % (37-47)
[2020-06-20 13:25] LABS: Hemoglobin 8.6 g/dl (12.0-16.0)
--- NOTE | 2020-06-20 13:52 | CA_ITS ---
Transthoracic Echocardiogram Patient (Last, First, Middle): Tequila Javier, Gender: Female Date of : 1965 Age: 55 Procedure Date: 06/20/2020 Procedure Type: Transthoracic Echocardiogram Location: [facility] [place] Height: 162.56 cm Weight: 147.42 kg BSA: 2.40 m2 Heart Rate: bpm BP: 134 / 80 mmHg Laborer Landscape: BRIAN Anderson MD: Patricia LEAHY Steel Barrel Reamer: Jere Toribio MD Symptoms: pulmonary edema, dyspnea Study Quality: Technically Difficult ECG Rhythm: Sinus Conclusions: - 1. Normal LV systolic function with mild LVH with pseudonormal filling pattern 2. Limited evaluation of cardiac valves with at least mild-to moderate mitral regurgitation 3. Normal RV systolic pressure 4. No pericardial effusion Findings Procedure Information Contrast agent, definity, is being given per protocol without apparent complications. Left Ventricle Normal left ventricular size and systolic function. There is mildly increased left ventricular wall thickness. The visually estimated ejection fraction is between 60-65%. There is no evidence of regional wall motion abnormalities. Spectral Doppler is indicative of a pseudonormal filling pattern. Right Ventricle The right ventricle was not well visualized. Atria The left atrium is likely dilated. Interatrial shunt cannot be excluded. The right atrium was not well visualized. Aortic Valve The aortic valve was not well visualized. There is no aortic valve stenosis. There is no aortic valve regurgitation. Mitral Valve The mitral valve was not well visualized. There is mild to moderate mitral valve regurgitation. There is no mitral valve stenosis. Pulmonic Valve The pulmonic valve was not well visualized. Tricuspid Valve The tricuspid valve was not well visualized. There is mild tricuspid valve regurgitation. The right ventricular systolic pressure is normal. There is no evidence of pulmonary hypertension. Great Vessels The aorta was not well visualized. The pulmonary artery was not well visualized. Venous The inferior vena cava was not well visualized. Pericardium/Pleural The pericardium was not well visualized. Prior Study Comparison No prior study available for comparison. Measurements 2D Linear Measurements IVSd: 1.40 0.6-0.9/0.6-1.0 cm LVIDd: 5.17 3.9-5.3/4.2-5.9 cm LVIDd Index: 2.15 2.4-3.2/2.2-3.1 cm/m2 LVIDs: 3.28 2.0-3.6 cm LVPWd: 1.34 0.7-1.1 cm Ao Root: 2.60 2.1-3.5 cm LA Diam: 4.00 2.7-3.8/3.0-4.0 cm LAIDs Index: 1.67 1.5-2.3 cm/m2 LV Mass: 370.99 67-162/88-224 g LV Mass Index: 154.58 43-95/49-115 g/m2 LVOT Diam: 2.30 3.0+(-)1.3 cm Mitral Valve MV Pk E: 1.16 MV PK A: 0.58 MV Decel Time: 144.00 E/A: 2.00 E'Lateral: 9.86 E'Medial: 9.09 E/E' Med: 12.80 E/E' Lat: 11.80 PHT: 42.00 MVA PHT: 5.24 Decel [place]: 8.03 Aortic Valve AoV Pk Doc: 1.65 AoV Mn Doc: 1.11 AoV VTI: 0.36 AoV Pk Grad: 11.00 Aov Mn Grad: 6.00 CRISELDA Cont.VTI: 2.91 LVOT LVOT Pk Doc: 1.15 LVOT Mn Doc: 0.83 LVOT VTI: 0.25 LVOT Pk Grad: 5.00 LVOT Mn Grad: 3.00 LVOT Diam: 2.30 LVOT Area: 4.15 Diastolic Function MV Pk E: 1.16 MV Pk A: 0.58 E/A: 2.00 E'Medial: 9.09 E/E' Med: 12.80 E' Laterial: 9.86 E/E' Lat: 11.80 Tricuspid Valve TR Pk Doc: 2.58 TR Pk Grad: 27.00 RA Press: 3.00 RVSP: 30.00 Great Vessels Aorta Ao Root-2D: 2.60 2.0-3.7 cm Ao Asc: 3.00 2.1-3.4 cm Pulmonary Valve PV Pk Doc: 1.10 Peak PV Grad: 5.00 Updated in Other Vendor System with Status of Final Jere Toribio MD electronically signed on 06/20/2020 2:14:18 PM with status of Final
[2020-06-20 15:14] VITALS: BP 169/79; PULSE 82; RESP 19; TEMP 35.9; O2SAT 100
--- NOTE | 2020-06-20 16:10 | PM.DS ---
DS: Providers Provider Date of Service: 06/20/20 Date of admission: 06/19/20 13:45 Primary care physician: None Physician DS: Diagnosis Discharge Diagnosis (1) Symptomatic anemia: Status: Acute (2) Shortness of breath: Status: Acute (3) Morbid obesity: Status: Acute (4) Pulmonary nodule: Status: Acute (5) Subclinical hypothyroidism: Status: Acute (6) CHF (congestive heart failure): Status: Acute Problem details: ruled out DS: Medications Discharge Medications Home Medications: Home Medications Medication Instructions Recorded Confirmed aspirin 1 tab PO DAILY 06/19/20 06/19/20 meclizine 1 tab PO TID PRN 06/19/20 06/19/20 Previous Rx's Medication Instructions Recorded amlodipine 10 mg PO DAILY #30 tab 06/20/20 ferrous sulfate 1 tab PO DAILY #30 tab 06/20/20 furosemide [Lasix] 20 mg PO DAILY #30 tab 06/20/20 DS: Summary Hospital Course Hospital Course: Patient was admitted for multiple reasons. She underwent a blood transfusion and H&H remained stable post transfusion. She was empirically treated for congestive heart failure with IV Lasix and was evaluated with a 2D echo which was a technically limited study but showed preserved left ventricular ejection fraction. As her blood counts improved and she was diuresed her shortness of breath and chest pain both resolved. She will be discharged home on oral Lasix 20 mg daily, iron supplementation. Additionally, her blood pressure was also elevated in the hospital and she had reported that she had stop taking her blood pressure meds for more than 2 months as she did not have a current PCP. Additionally she also has not taken any medications for her reported thyroid disease. Al in all, the patient was educated on the importance of finding and following up with a primary care doctor. She has been given 1 month supply of her current medications. She has also been told about her lung nodule which she needs to follow up with when she obtains a PCP. Time Spent with Patient Time attestation: Total time spent providing and/or coordinating discharge services: Discharge coordination time: Greater than 30 minutes Physical Exam Vital Signs: Vital Signs: Last Vital Signs Temp 96.6 F L 06/20/20 15:14 Pulse 82 06/20/20 15:14 Resp 19 06/20/20 15:14 BP 169/79 H 06/20/20 15:14 Pulse Ox 100 06/20/20 15:14 Body Mass Index 55.9 Const: Other: Constitutional - Awake and Alert, No apparent distress Eyes - PERRLA, EOMI Cardiovascular - S1S2, RRR, No edema Respiratory - Normal lung expansion, Normal respiratory effort, No respiratory distress, CTA bilaterally Gastrointestinal - NT / ND; +BS; No rebound or guarding - No CVA tenderness Extremities - 1+ pitting edema. Musculoskeletal - Normal inspection, normal ROM Skin - Warm/Dry Neurological - Alert & oriented x3, No focal deficit Psychological - Appropriate affect DS: Data Data Completed and Pending Labs on day of discharge: Laboratory Results - last 24 hr 06/20/20 06/20/20 06/20/20 05:26 05:26 13:15 WBC 9.2 RBC 3.87 L Hgb 7.6 L 8.6 L Hct 27.6 L 30.7 L MCV 71.3 L MCH 19.6 L MCHC 27.5 L RDW 20.0 H Plt Count 246 MPV 11.7 Immature Gran % (Auto) 0.3 Neut % (Auto) 54.4 Lymph % (Auto) 29.0 [place] % (Auto) 10.1 Eos % (Auto) 5.7 H Baso % (Auto) 0.5 Lymph # (Auto) 2.7 [place] # (Auto) 0.9 Eos # (Auto) 0.5 H Baso # (Auto) 0.1 Abs Immat Gran (auto) 0.03 Absolute Neuts (auto) 5.0 Absolute Nucleated RBC 0.000 Nucleated RBC % (auto) 0.0 Sodium 136 Potassium 4.1 Chloride 103 Carbon Dioxide 26 Anion Gap 11 L BUN 17 H Creatinine 0.81 Estim Creat Clear Calc 113.9 Estimated GFR > 60 Random Glucose 113 Calcium 8.3 L Discharge Plan Discharge Patient Disposition: Home, Self-Care Referrals: Physician,None [Primary Care Provider] - Discharge Medications: New amlodipine 5 mg Tablet 10 mg PO DAILY Qty: 30 RF: 0 furosemide [Lasix] 20 mg tablet 20 mg PO DAILY Qty: 30 RF: 0 Continued aspirin 81 mg tablet,delayed release (DR/EC) 1 tab PO DAILY RF: 0 meclizine 25 mg tablet 1 tab PO TID PRN (Reason: dizziness) RF: 0 ferrous sulfate 325 mg (65 mg iron) tablet 1 tab PO DAILY Qty: 30 RF: 0 Discontinued amlodipine 2.5 mg tablet 1 tab PO DAILY RF: 0 Discharge Orders: Discharge Order (Routine); Ordered 06/20/20 Ordered By: Les Brownlee Diet: advance to usual diet Activity on Discharge: As tolerated Stand Alone Forms: Patient Portal Discharge page Care Plan Goals: To stay healthy and out of the hospital. Health Concerns: Anemia Difficulty breathing High Blood pressure Plan of Treatment: Take Iron for your low blood counts. Follow up with Flour Tester. Find and follow up with a PCP Take Amlodipine 10mg daily and Lasix 20mg daily
== END 2020-06-20 05:45 | disposition home or self-care (01) | DRG 663 ==
LOC: HO.ED 12:21 → HO.EDOVER 14:16 → HO.IMC 19:24
PROVIDERS: Physician Assistant Medical; Admitting Provider Family Medicine; Emergency Provider Emergency Medicine Emergency Medical Services; Visit Provider Family Medicine
DX: D50.9 Iron deficiency anemia, unspecified (principal); I11.0 Hypertensive heart disease with heart failure; E66.01 Morbid (severe) obesity due to excess calories; I50.1 Left ventricular failure, unspecified; N92.0 Excessive and frequent menstruation with regular cycle; E03.9 Hypothyroidism, unspecified; R91.1 Solitary pulmonary nodule; Z68.43 Body mass index [BMI] 50.0-59.9, adult; Z20.822 Contact with and (suspected) exposure to COVID-19; Z91.14 Patient's other noncompliance with medication regimen; Z79.82 Long term (current) use of aspirin; Z79.899 Other long term (current) drug therapy
CPT/HCPCS: 36415; 71046; 71275; 80048; 83880; 84439; 84443; 84484; 85014; 85018; 85025; 85379; 85610; 85730; 86850; 86900; 86923; 87635; 93005; 93306; 93971; 96374; 99285; J1940; P9016; Q9957; Q9967

== ENCOUNTER 2020-08-13 09:14 | Outpatient (REF) | payer OTHER, SELFPAY | END 2020-08-13 09:15 | disposition home or self-care (01) | LOC: HO.LAB 09:14 | PROVIDERS: Visit Provider Internal Medicine | DX: Z20.822 Contact with and (suspected) exposure to COVID-19 (principal) | CPT/HCPCS: C9803; U0003; U0005 ==

== ENCOUNTER 2021-02-19 06:39 | Emergency (ER) | payer OTHER, SELFPAY ==
--- NOTE | ~2021-02-19 | US_ITS ---
EXAMINATION: US PELVIS TRANSVAGINAL CLINICAL INFORMATION: Dysfunctional uterine bleeding. Evaluate for fibroids. COMPARISON: None. TECHNIQUE: Transcutaneous and transvaginal pelvic ultrasound. Transvaginal scanning was performed after voiding to better evaluate the endometrium and adnexa. FINDINGS: The uterus measures 12.9 x 6.6 x 8.9 cm. The uterus is anteverted. Nabothian cyst is seen within the cervix. The uterine contour is smooth. No fibroid identified. The endometrium is very thick measuring 4.3 cm in diameter and there is blood flow identified with active bleeding present. No definite focal polyp is identified however finding is suspicious for possible endometrial cancer. The right ovary measures approximately 2.4 x 2.5 x 2.4 cm. The calculated right ovarian volume is approximately 7.5 mL. No right adnexal abnormality appreciated. The left ovary measures 2.6 x 1.3 x 1.6 cm. The calculated left ovarian volume is approximately 2.8 mL. No abnormal left adnexal findings. No significant free pelvic fluid. US/US pelvic and transvaginal IMPRESSION: Very thickened endometrium with active blood flow and bleeding suggestive of endometrial carcinoma. No fibroid identified.
[2021-02-19 07:00] VITALS: BP 142/84; BP 167/86; PULSE 109; PULSE 88; RESP 24; TEMP 37.1; O2SAT 98; O2SAT 99; BMI 54.9
[2021-02-19 07:20] LABS: MANUAL DIFF FLAG NO
[2021-02-19 07:22] LABS: Basophils Percent Auto 0.5 % (0-2); Eosinophils Absolute Auto 0.5 X10*3/uL (0.0-0.4); Eosinophils Percent Auto 5.5 % (0-4); Hematocrit 34.1 % (37.0-47.0); Hemoglobin 10.4 g/dl (12.0-16.0); Imm Gran Abs Auto 0.02 X10*3/uL (0.00-0.03); Imm Gran Pct Auto 0.2 % (0.0-0.4); Lymphocytes Percent Auto 23.6 % (20-40); Mean Corpuscular HGB Conc 30.5 g/dl (31.0-35.0); Mean Corpuscular Hemoglobin 25.2 pg (27.0-33.0); Mean Corpuscular Volume 82.8 fL (80.0-98.0); Mean Platelet Volume 10.6 fL (9.4-12.3); Monocytes Absolute Auto 0.5 X10*3/uL (0.1-1.2); Monocytes Percent Auto 5.9 % (2-11); Neutrophils Absolute Auto 5.4 x10*3/uL (2.0-8.3); Neutrophils Percent Auto 64.3 % (45-73); Platelet Count 201 X10*3/uL (160-400); Red Blood Count 4.12 X10*6/uL (4.20-5.50); Red Cell Distribution Width 18.6 % (11.0-16.0); White Blood Count 8.4 X10*3/uL (4.8-10.8)
[2021-02-19 07:44] LABS: Alanine Aminotransferase 15 U/L (0-31); Albumin Level 3.5 g/dL (3.5-5.0); Alkaline Phosphatase 60 U/L (39-117); Anion Gap 14 (12-20); Aspartate Amino Transferase 13 U/L (5-31); Bilirubin Total 0.5 mg/dL (0.0-1.0); Blood Urea Nitrogen 13 mg/dL (9-16); Calcium 8.6 mg/dL (8.4-10.2); Carbon Dioxide 22 mmol/L (22-29); Chloride 106 mmol/L (96-108); Creatinine Clr Calc Pharmacy 111.4; Estimated Glomerular Filt Rate > 60; Glucose Random 171 mg/dL (60-115); Lipase 13 U/L (8-78); Potassium 3.6 mmol/L (3.3-5.1); Sodium 138 mmol/L (135-145); Total Protein 7.2 g/dL (6.5-8.0)
[2021-02-19 07:46] LABS: INTERNATIONAL NORM RATIO 1.2 (0.9-1.1); Prothrombin Time 13.1 SEC (9.9-13.0)
[2021-02-19 07:48] LABS: Partial Thromboplastin Time 32.1 SEC (24.1-38.0)
[2021-02-19 08:13] VITALS: BP 173/71; PULSE 90; RESP 14; TEMP 36.8; O2SAT 97
--- NOTE | 2021-02-19 11:42 | ED.FEMALEGU ---
HPI - Female Genitourinary General Chief complaint: Vaginal Bleeding Stated complaint: VAGINAL BLEEDING Time Seen by Provider: 02/19/21 06:45 Source: patient Mode of arrival: ambulatory Limitations: language barrier (Croatian speaking only, court interpreter used) History of Present Illness HPI Narrative: 55-year-old female who presents emergency department for dysfunctional vaginal bleeding. Patient states that she has had continual vaginal bleeding for approximately 3 years on and off. She states that she normally has small amounts of spotting with occasional increase menstrual flow. She states that this morning, she was getting ready to go to work and was in the shower when she had a large amount of blood come out of her vagina. She noted large blood clots as well. She states that she was feeling weak. She denied chest pain, shortness of breath or dyspnea on exertion. She denied abdominal pain. She denied frequency, urgency or dysuria. The patient has not been evaluated by manufacturing technician for this problem. Related Data Home Medications Medication Instructions Recorded Confirmed aspirin 81 mg tablet,delayed 1 tab PO DAILY 06/19/20 11/05/20 release meclizine 25 mg tablet 1 tab PO TID PRN 06/19/20 11/05/20 Previous Rx's Medication Instructions Recorded ferrous sulfate 325 mg (65 mg 1 tab PO DAILY #30 tab 06/20/20 iron) tablet furosemide 20 mg tablet (Lasix) 20 mg PO DAILY #30 tab 09/10/20 amlodipine 10 mg tablet 10 mg PO DAILY 90 Days #90 tab 11/05/20 lisinopril 10 mg tablet 10 mg PO DAILY 90 Days #90 tab 11/05/20 Allergies Allergy/AdvReac Type Severity Reaction Status Date / Time No Known Allergies Allergy Verified 11/05/20 16:28 Review of Systems Review of Systems: Yes all other systems are reviewed and are negative [facility] Past Medical History [facility] Narrative: Past medical history hypertension, anemia, obesity, hypothyroidism. Past surgical history: None. Social history: She denies tobacco, alcohol and drug use. Medical History Elevated troponin Essential hypertension Hospital discharge follow-up Menorrhagia Microcytic anemia Morbid obesity with BMI of 50.0-59.9, adult Vertigo Surgical History H/O tubal ligation Family History Family History Mother Thyroid disease Father Cancer Other No cardiac disease Social History Social History Household Members: Family Housing: Apartment Do you presently have visiting nurse or other home services: No Alcohol intake: unknown Patient Tobacco Use Status: Never used Tobacco e-Cigarette/Vaping Use: Never Used Second Hand Smoke Exposure: No Use of substances other than those prescribed or required for medical reasons: Unknown Advance Directives: Yes Advance Directives on File: Yes Advance Directives Date on File: 06/23/20 Patient : No service: No Current occupational status: employed 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 HENMT: Head: Yes normal to inspection, Yes normocephalic and Yes atraumatic Ears: external ears normal General nose exam: Normal external nose present Face and sinus: Yes normal facial exam Mouth: Normal oral and palatal mucosa present Throat: Yes posterior oropharynx normal Eyes: General: appearance normal, both eyes and all related structures Pupils: Equal, round and reactive pupils present Neck: Neck: Yes normal visual inspection, Yes no lymphadenopathy, Yes trachea midline and Yes supple Chest: Chest palpation & inspection: normal inspection of the chest and normal palpation of entire chest wall Resp: Effort & Inspection: normal respiratory effort and able to speak in complete sentences Auscultation: clear to auscultation bilaterally Cardio: Rate: regular rate Rhythm: regular rhythm Heart sounds: S1 normal heart sound present, S2 normal heart sound present and no murmurs GI: Inspection: Yes normal to inspection and Yes obesity Palpation (GI): Soft to palpation, nontender and no guarding Auscultation: normal bowel sounds : General: Yes no CVA tenderness External Female Exam: normal external appearance Speculum Exam - Vagina: normal appearance of the vagina and vaginal bleeding (Several large blood clots noted in the patient's vagina, cleared away swabs) Speculum Exam - Cervix: normal appearance of the cervix and Other cervical findings present (Dark blood noted in the cervical os) Bimanual exam- vagina & uterus: normal bimanual exam OB/external & speculum: vaginal bleeding (Several large blood clots noted in the patient's vagina, cleared away swabs) Back/Spine/Pelvis: Back: no CVA tenderness Skin: General skin exam: no rashes or lesions noted Neuro: Cranial nerves: Yes CN's II-XII intact bilaterally and Yes Equal, round and reactive pupils present Cognition (Neuro): normal cognition Motor exam (neuro): 5/5 motor strength present throughout Extrem: General: Yes normal to inspection Psych: Appearance: grossly normal Speech and movement: Normal speech and movement present Affect: normal affect Attitude: cooperative Thought process: Normal thought process present Thought content: Normal thought content present Course Course Course Narrative: 55-year-old female who presents emergency department for evaluation of dysfunctional uterine bleeding x3 years with daily spotting who noted increased vaginal bleeding today while she was taking shower. Patient states that the amount of blood was large and she had noted large blood clots. The patient has not had any manufacturing technician care for evaluation for dysfunctional uterine bleeding. Initial vital signs revealed an elevated blood pressure of 167/86, tachycardia 109 beats per minute and respiratory of 24. Repeat blood pressure revealed improvement improvement of heart rate to 90 and respiratory rate to 14. Physical examination revealed no abdominal tenderness. Pelvic examination did reveal blood clots in the vaginal vault which for cleared away with several swabs, the patient does have dark blood noted in the cervical os. 1149: WBC was normal. H&H was low at 10.4 and 34.1, patient has had similar anemia with the lowest value being 6.8 and 25.2 on 06/19/2020. MCV was normal. Platelet count was 008218. PT/INR and PTT were normal. Comprehensive metabolic panel was normal with a glucose of 171. Transvaginal pelvic ultrasound was interpreted the radiologist, Dr. Pravin Loera as follows:Very thickened endometrium with active blood flow and bleeding suggestive of endometrial carcinoma. No fibroid identified. I will discuss the patient's presentation in these findings with our covering core winder, Dr. Irwin. 1312: evaluate the patient here in the emergency department. On his pelvic exam, he felt that the patient was actively bleeding. He is concerned that the patient is postmenopausal and most likely has endometrial cancer. Therefore this patient needs a facility that has Advertising Consultant-Onc services in the ability to embolized the bleed if needed He recommended that the patient be transferred to [facility] or inappropriate facility that can manage the patient's dysfunctional uterine bleeding. I will repeat the patient's H&H and contact the [facility] transfer line. Dr. Alexander holland did do a Pap smear and did do an endometrial tissue biopsy. 1518: The patient's repeat H&H was 10.4 and 34.1 which is encouraging. I did contact our core winder again, Dr. Irwin and he re-evaluated her in the emergency department. Based on his examination he believes that the patient is still actively bleeding and still recommends transfer. I have called the transfer services for [facility], [facility], [facility], [facility] and all of these to assure not accepting transfers at this time. I did discuss this situation with our nurse management. Our nurse harvest manager has reached out to the [facility] transfer line to see if we can facilitate in ED to ED transfer or transfer to the OBGYN service. Sixteen 15: Patient's H&H at 3:41 p.m. was 9.6 and 31.5. I did discuss the patient's presentation with the OBGYN attending at [facility], Dr. Adam House and he did accept the patient as a transfer to the [facility] service. The patient's COVID-19 test was negative. Patient will be transferred with lactated Ringer's IV. ? MDM - Female Genitourinary Lab Data Result diagrams: 02/19/21 15:41 02/19/21 07:17 Labs: Lab Results 02/19/21 02/19/21 02/19/21 Range/Units 07:17 07:17 07:17 WBC 8.4 (4.8-10.8) X10*3/uL RBC 4.12 L (4.20-5.50) X10*6/uL Hgb 10.4 L (12.0-16.0) g/dl Hct 34.1 L (37.0-47.0) % MCV 82.8 (80.0-98.0) fL MCH 25.2 L (27.0-33.0) pg MCHC 30.5 L (31.0-35.0) g/dl RDW 18.6 H (11.0-16.0) % Plt Count 201 (160-400) X10*3/uL MPV 10.6 (9.4-12.3) fL Immature Gran % (Auto) 0.2 (0.0-0.4) % Neut % (Auto) 64.3 (45-73) % Lymph % (Auto) 23.6 (20-40) % Jewell % (Auto) 5.9 (2-11) % Eos % (Auto) 5.5 H (0-4) % Baso % (Auto) 0.5 (0-2) % Lymph # (Auto) 2.0 (1.2-4.9) X10*3/uL Jewell # (Auto) 0.5 (0.1-1.2) X10*3/uL Eos # (Auto) 0.5 H (0.0-0.4) X10*3/uL Baso # (Auto) 0.0 (0.0-0.2) X10*3/uL Abs Immat Gran (auto) 0.02 (0.00-0.03) X10*3/uL Absolute Neuts (auto) 5.4 (2.0-8.3) x10*3/uL Absolute Nucleated RBC 0.000 (0.0-0.012) X10*3/uL Nucleated RBC % (auto) 0.0 (0.0-0.2) /100WBC PT 13.1 H (9.9-13.0) SEC INR 1.2 H (0.9-1.1) APTT 32.1 (24.1-38.0) SEC Sodium 138 (135-145) mmol/L Potassium 3.6 (3.3-5.1) mmol/L Chloride 106 (96-108) mmol/L Carbon Dioxide 22 (22-29) mmol/L Anion Gap 14 (12-20) BUN 13 (9-16) mg/dL Creatinine 0.79 (0.5-1.4) mg/dL Estim Creat Clear Calc 111.4 Estimated GFR > 60 Random Glucose 171 H (60-115) mg/dL Calcium 8.6 (8.4-10.2) mg/dL Total Bilirubin 0.5 (0.0-1.0) mg/dL AST 13 (5-31) U/L ALT 15 (0-31) U/L Alkaline Phosphatase 60 (39-117) U/L Total Protein 7.2 (6.5-8.0) g/dL Albumin 3.5 (3.5-5.0) g/dL Lipase 13 (8-78) U/L Urine Color Urine Appearance Urine pH (5.0-8.0) Ur Specific Folcroft (1.005-1.025) Urine Protein (NEG-TRACE) MG/DL Urine Glucose (UA) (NEG) MG/DL Urine Ketones (NEG) MG/DL Urine Blood (NEG) Urine Nitrite (NEG) Ur Leukocyte Esterase (NEG) Urine RBC (0) /HPF Urine WBC (0-4) /HPF Ur Squamous Epith Cells /LPF Urine Bacteria /LPF Urine Test (NEGATIVE) COVID-19 (GUERO) (Negative) COVID-19 Clin Com 02/19/21 02/19/21 02/19/21 Range/Units 13:31 14:11 14:11 WBC (4.8-10.8) X10*3/uL RBC (4.20-5.50) X10*6/uL Hgb 10.4 L (12.0-16.0) g/dl Hct 34.1 L (37.0-47.0) % MCV (80.0-98.0) fL MCH (27.0-33.0) pg MCHC (31.0-35.0) g/dl RDW (11.0-16.0) % Plt Count (160-400) X10*3/uL MPV (9.4-12.3) fL Immature Gran % (Auto) (0.0-0.4) % Neut % (Auto) (45-73) % Lymph % (Auto) (20-40) % Jewell % (Auto) (2-11) % Eos % (Auto) (0-4) % Baso % (Auto) (0-2) % Lymph # (Auto) (1.2-4.9) X10*3/uL Jewell # (Auto) (0.1-1.2) X10*3/uL Eos # (Auto) (0.0-0.4) X10*3/uL Baso # (Auto) (0.0-0.2) X10*3/uL Abs Immat Gran (auto) (0.00-0.03) X10*3/uL Absolute Neuts (auto) (2.0-8.3) x10*3/uL Absolute Nucleated RBC (0.0-0.012) X10*3/uL Nucleated RBC % (auto) (0.0-0.2) /100WBC PT (9.9-13.0) SEC INR (0.9-1.1) APTT (24.1-38.0) SEC Sodium (135-145) mmol/L Potassium (3.3-5.1) mmol/L Chloride (96-108) mmol/L Carbon Dioxide (22-29) mmol/L Anion Gap (12-20) BUN (9-16) mg/dL Creatinine (0.5-1.4) mg/dL Estim Creat Clear Calc Estimated GFR Random Glucose (60-115) mg/dL Calcium (8.4-10.2) mg/dL Total Bilirubin (0.0-1.0) mg/dL AST (5-31) U/L ALT (0-31) U/L Alkaline Phosphatase (39-117) U/L Total Protein (6.5-8.0) g/dL Albumin (3.5-5.0) g/dL Lipase (8-78) U/L Urine Color YELLOW Urine Appearance HAZY Urine pH 6.0 (5.0-8.0) Ur Specific Folcroft 1.025 (1.005-1.025) Urine Protein TRACE (NEG-TRACE) MG/DL Urine Glucose (UA) NEG (NEG) MG/DL Urine Ketones NEG (NEG) MG/DL Urine Blood 3+ H (NEG) Urine Nitrite NEG (NEG) Ur Leukocyte Esterase TRACE H (NEG) Urine RBC TNTC H (0) /HPF Urine WBC 1-4 (0-4) /HPF Ur Squamous Epith Cells NONE /LPF Urine Bacteria NONE /LPF Urine Test NEGATIVE (NEGATIVE) COVID-19 (GUERO) (Negative) COVID-19 Clin Com 02/19/21 02/19/21 Range/Units 15:41 15:42 WBC (4.8-10.8) X10*3/uL RBC (4.20-5.50) X10*6/uL Hgb 9.6 L (12.0-16.0) g/dl Hct 31.5 L (37.0-47.0) % MCV (80.0-98.0) fL MCH (27.0-33.0) pg MCHC (31.0-35.0) g/dl RDW (11.0-16.0) % Plt Count (160-400) X10*3/uL MPV (9.4-12.3) fL Immature Gran % (Auto) (0.0-0.4) % Neut % (Auto) (45-73) % Lymph % (Auto) (20-40) % Jewell % (Auto) (2-11) % Eos % (Auto) (0-4) % Baso % (Auto) (0-2) % Lymph # (Auto) (1.2-4.9) X10*3/uL Jewell # (Auto) (0.1-1.2) X10*3/uL Eos # (Auto) (0.0-0.4) X10*3/uL Baso # (Auto) (0.0-0.2) X10*3/uL Abs Immat Gran (auto) (0.00-0.03) X10*3/uL Absolute Neuts (auto) (2.0-8.3) x10*3/uL Absolute Nucleated RBC (0.0-0.012) X10*3/uL Nucleated RBC % (auto) (0.0-0.2) /100WBC PT (9.9-13.0) SEC INR (0.9-1.1) APTT (24.1-38.0) SEC Sodium (135-145) mmol/L Potassium (3.3-5.1) mmol/L Chloride (96-108) mmol/L Carbon Dioxide (22-29) mmol/L Anion Gap (12-20) BUN (9-16) mg/dL Creatinine (0.5-1.4) mg/dL Estim Creat Clear Calc Estimated GFR Random Glucose (60-115) mg/dL Calcium (8.4-10.2) mg/dL Total Bilirubin (0.0-1.0) mg/dL AST (5-31) U/L ALT (0-31) U/L Alkaline Phosphatase (39-117) U/L Total Protein (6.5-8.0) g/dL Albumin (3.5-5.0) g/dL Lipase (8-78) U/L Urine Color Urine Appearance Urine pH (5.0-8.0) Ur Specific Folcroft (1.005-1.025) Urine Protein (NEG-TRACE) MG/DL Urine Glucose (UA) (NEG) MG/DL Urine Ketones (NEG) MG/DL Urine Blood (NEG) Urine Nitrite (NEG) Ur Leukocyte Esterase (NEG) Urine RBC (0) /HPF Urine WBC (0-4) /HPF Ur Squamous Epith Cells /LPF Urine Bacteria /LPF Urine Test (NEGATIVE) COVID-19 (GUERO) Negative (Negative) COVID-19 Clin Com See Note Critical Care Time Critical Care Time Critical Care Time: Yes Total Critical Care Time: 75 Attestation: Critical Care: The patient was critically ill with a high probability of imminent or life threatening deterioration. I spent greater than 30 minutes of discontinuous time evaluating the patient,delivering critical care at the bedside, discussing and evaluating pertinent data with consultants. Critical care time does not include time spent performing separately billable procedures or teaching. Total time spent performing critical care was 75 minutes. Discharge Plan Discharge Clinical Impression: Uterine bleeding, Anemia Patient Disposition: [facility] Transfer Details: ED to [facility] 2 Prescriptions: No Action furosemide [Lasix] 20 mg tablet 20 mg PO DAILY Qty: 30 RF: 6 aspirin 81 mg tablet,delayed release (DR/EC) 1 tab PO DAILY RF: 0 meclizine 25 mg tablet 1 tab PO TID PRN (Reason: dizziness) RF: 0 ferrous sulfate 325 mg (65 mg iron) tablet 1 tab PO DAILY Qty: 30 RF: 0 amlodipine 10 mg tablet 10 mg PO DAILY 90 Days Qty: 90 RF: 1 lisinopril 10 mg tablet 10 mg PO DAILY 90 Days Qty: 90 RF: 1
[2021-02-19 11:59] VITALS: BP 131/58; PULSE 82; RESP 15; O2SAT 98
[2021-02-19] MEDS: medroxyPROGESTERone Acetate 5 MG TABLET 10 MG PO (11:59)
--- NOTE | 2021-02-19 12:55 | PM.GYNCN ---
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 Systems Review of Systems ROS Unobtainable: All systems reviewed & are unremarkable except as noted in HPI and below Cardiovascular: Denies Palpatations, Loss of consciousness or Chest pain Respiratory: Denies Cough, Wheezing or Shortness of breath Musculoskeletal: Denies Low back pain Gastrointestinal: Denies Heartburn, Constipation, Diarrhea, Nausea or Vomiting Genitourinary: Denies Pain with urination, Burning with urination or Urinary frequency Neurological: Denies Migranes Psychological: Denies Depression OB PMFSH Past Medical History Medical History Elevated troponin Essential hypertension Hospital discharge follow-up Menorrhagia Microcytic anemia Morbid obesity with BMI of 50.0-59.9, adult Vertigo Family History Family History Mother Thyroid disease Father Cancer Other No cardiac disease Surgical History Surgical History H/O tubal ligation Social History Social History Household Members: Family Housing: Apartment Do you presently have visiting nurse or other home services: No Alcohol intake: unknown Patient Tobacco Use Status: Never used Tobacco e-Cigarette/Vaping Use: Never Used Second Hand Smoke Exposure: No Use of substances other than those prescribed or required for medical reasons: Unknown Advance Directives: Yes Advance Directives on File: Yes Advance Directives Date on File: 06/23/20 Patient : No service: No Current occupational status: employed 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 Current occupational exposures/hazards: No Meds Allergies Allergy/AdvReac Type Severity Reaction Status Date / Time No Known Allergies Allergy Verified 11/05/20 16:28 Home Medications Medication Instructions Recorded Confirmed Last Taken Type aspirin 81 mg tablet,delayed 1 tab PO DAILY 06/19/20 11/05/20 2 Months Ago History release ~04/21/20 meclizine 25 mg tablet 1 tab PO TID PRN 06/19/20 11/05/20 2 Months Ago History ~04/21/20 SENIOR JAVA J2EE DEVELOPER Physical Exam Vitals Vital signs: Temp Pulse Resp BP Pulse Ox 98.2 F 82 15 131/58 L 98 02/19/21 08:13 02/19/21 11:59 02/19/21 11:59 02/19/21 11:59 02/19/21 11:59 Body Mass Index 54.9 Constitutional General Appearance: Healthy appearing, Well-nourished and Well-developed Psychiatric Mood and Affect: active and alert, normal mood and normal affect Skin Appearance: No rashes and No lesions Lungs Respiratory Effort: No intercostal retractions Auscultation: Clear to auscultation Cardiovascular Auscultation: RRR Abdomen Auscultation/Inspection/Palpation: Normal bowel sounds, Soft, Non-distended and No tenderness Female Genitalia (Pelvic) Vulva: No lesions Cervix: Grossly normal Adnexa/Parametria: Adnexal Tenderness: None, Adnexal Mass: None, Parametrial Tenderness: None and Parametrial Mass: None Additional Comments: Active vaginal bleeding coming out of the cervix, moderate to heavy bleeding SENIOR JAVA J2EE DEVELOPER - Results Labs CBC & Chem 7: 02/19/21 15:41 02/19/21 07:17 Labs: Short CBC 02/19/21 Range/Units 07:17 WBC 8.4 (4.8-10.8) X10*3/uL Hgb 10.4 L (12.0-16.0) g/dl Hct 34.1 L (37.0-47.0) % Plt Count 201 (160-400) X10*3/uL BMP 02/19/21 07:17 Sodium 138 Potassium 3.6 Chloride 106 Carbon Dioxide 22 BUN 13 Creatinine 0.79 Calcium 8.6 Liver Function 02/19/21 Range/Units 07:17 Total Bilirubin 0.5 (0.0-1.0) mg/dL AST 13 (5-31) U/L ALT 15 (0-31) U/L Alkaline Phosphatase 60 (39-117) U/L Albumin 3.5 (3.5-5.0) g/dL Imaging US - abdomen: Radiologist's impression: ITS Impressions Pelvic/Transvag US 02/19/21 09:06 IMPRESSION: Very thickened endometrium with active blood flow and bleeding suggestive of endometrial carcinoma. No fibroid identified. Assessment and Plan (1) Postmenopausal bleeding: Status: Acute Co testing taken, endometrial biopsy done. The patient was counseled regarding the indication and benefits of endometrial sampling to rule out endometrial pathology including not limited to endometrial hyperplasia or endometrial cancer and others; The alternatives (Either do nothing vs. hysteroscopy D&C) & the risks were discussed with the patient including but not limited: pain, uterine perforation, bleeding, infection, possible injury to bladder, bowel, ureter, possible need for blood transfusion with all its possible risks. The patient verbalized understanding all questions answered and signed consent. ? The patient was placed into the dorsal lithotomy position; a speculum was inserted in the vagina.? Using aseptic technique for the procedure, the cervix was cleansed with Betadine.? The anterior lip of the cervix was grasped with a single tooth tenaculum. The uterus was sounded to 10 cm with a 4 mm Pipelle was used.? Tissues samples were obtained and placed in formalin, in a patient labeled container and sent to the pathology department. Discussed with the patient the findings on pelvic exam, moderate to heavy active vaginal bleeding, the finding on ultrasound 4.3 cm endometrial thickness and the differential diagnosis which includes: endometrial hyperplasia, cancer or polyp. Given the heaviness of the flow of the vaginal bleeding, the patient needs to be admitted an inpatient . Options of treatment discussed with the patient include but not limited to uterine artery embolization, D&C with the possibility of a hysterectomy with intraoperative frozen section to rule out endometrial carcinoma. Since the possibility of endometrial carcinoma is high, and there is no availability of Gynecologic Oncology to perform endometrial cancer staging procedure during a hysterectomy at [facility], recommended to the patient to be transferred to a tertiary care Center where there is Mechanical Applications Engineer Oncology service is available. All questions answered, the patient verbalized understanding and agreed with the plan. Discussed the case with Dr. Hsieh
[2021-02-19 13:15] VITALS: BP 166/75; PULSE 95; RESP 18; TEMP 36.7; O2SAT 97
[2021-02-19 13:38] LABS: Hematocrit 34.1 % (37.0-47.0); Hemoglobin 10.4 g/dl (12.0-16.0)
[2021-02-19 14:19] LABS: Appearance Urine HAZY; Color Urine YELLOW; Glucose Urine UA NEG (NEG); Leukocyte Esterase Urine TRACE (NEG); Nitrite Urine NEG (NEG); Specific Gravity - Urine 1.025 (1.005-1.025); UACC Culture Trigger YES; Urine Blood 3+ (NEG); Urine Ketones NEG (NEG); Urine Protein TRACE MG/DL (NEG-TRACE)
[2021-02-19 14:25] LABS: UPreg QC Valid YES; Urine Pregnancy NEGATIVE (NEGATIVE)
[2021-02-19 14:26] LABS: RBC Urine TNTC /HPF (0)
--- NOTE | 2021-02-19 14:49 | PC.NURSE ---
@[phone] CALL PLACED @ DR STARK REQUEST TO [facility] TRANSFER LINE @ [phone] FOR POSSIBLE TRANSFER OF THIS PT FARHAD ANSWERS, TAKES PT INFO AND CALL BACK NUMBER THEN ASKS TO SPEAK WITH DR MI STARK TAKE OVER CALL RIGHT AWAY
--- NOTE | 2021-02-19 15:01 | PC.NURSE ---
@ [phone] RETURN CALL FROM FARHAD FROM [facility] ASKING TO SPEAK WITH DR MI STARK TAKES OVER CALL RIGHT AWAY PER DR STARK [facility] DECLINES TRANSFER THEY AT CAPACITY AND ONLY OPEN TO STEMI, STROKE OR TRAUMA TRANSFERS
[2021-02-19 15:50] LABS: Hematocrit 31.5 % (37.0-47.0); Hemoglobin 9.6 g/dl (12.0-16.0)
[2021-02-19 16:10] LABS: COVID-19 Test Negative (Negative); IDNOW Serial# 9DD0AD1C
[2021-02-19] MEDS: Lactated Ringers 1,000 ML 999 ML IV (16:18)
--- NOTE | 2021-02-19 16:40 | PC.NURSE ---
Attempted to call [facility] to give nurse to nurse report with no answer. Pt transported via ALS ambulance to [facility] for PERMASTONE APPLICATOR oncology consult.
== END 2021-02-19 16:42 | disposition short-term general hospital (02) ==
PROVIDERS: Obstetrics & Gynecology; Emergency Provider Emergency Medicine Emergency Medical Services; PCP Internal Medicine
DX: N93.9 Abnormal uterine and vaginal bleeding, unspecified (principal); D64.9 Anemia, unspecified; I10 Essential (primary) hypertension; R00.0 Tachycardia, unspecified; Z20.822 Contact with and (suspected) exposure to COVID-19
CPT/HCPCS: 36415; 76830; 76856; 80053; 81001; 81025; 81288; 83690; 85014; 85018; 85025; 85610; 85730; 86850; 86900; 86901; 87086; 87635; 88142; 88305; 88341; 88342; 88360; 96360; 99285; 99291; 99292

== ENCOUNTER 2023-06-27 07:12 | Emergency (ER) | payer OTHER, SELFPAY ==
--- NOTE | ~2023-06-27 | CT_ITS ---
EXAMINATION: CT ANGIOGRAM OF THE CHEST WITH AND WITHOUT CONTRAST (CT PULMONARY ANGIOGRAM FOR PE) CLINICAL INFORMATION: Reason for Exam R sided pleuritic pain COMPARISON: Chest radiograph earlier today and CT angiogram chest 06/19/2020 TECHNIQUE: Prior to contrast administration, noncontrast localization images were obtained. Subsequently, multidetector volumetric imaging was performed from the thoracic inlet to below the diaphragms following the administration of 70 mL Omnipaque 350 intravenous contrast. No contrast reaction reported Sagittal, coronal, and MIP oblique sagittal reformatted images were obtained on the CT workstation, uploaded to PACS, and reviewed. This CT examination was performed using dose optimization techniques as appropriate, variously including the following: *Automated exposure control *Adjustment of mA and/or kV according to patient size (this includes techniques or standardized protocols for targeted exams where dose is matched to indication/reason for exam; i.e. extremities or head) *Use of iterative reconstruction technique Total exam dose-length product 549 mGy-cm FINDINGS: QUALITY OF STUDY/CONTRAST BOLUS: Satisfactory. PULMONARY ARTERIES: No pulmonary emboli. THORACIC AORTA: No aneurysm. LUNG: Mild emphysematous changes are present along with bronchial thickening. There is a 6 mm left lower lobe pulmonary nodule in the lateral costophrenic sulcus (7:316) unchanged from 06/19/2020. No focal consolidation, additional nodules or masses. PLEURA: No pleural effusion or pneumothorax. MEDIASTINUM: Heart size upper limits of normal. No pericardial effusion. No hilar or mediastinal lymphadenopathy. No evidence of septal bowing or right heart strain. CORONARY ARTERY CALCIFICATION: None visualized on this study. CHEST WALL/AXILLA: No axillary or internal mammary lymphadenopathy. OSSEOUS STRUCTURES: No acute or suspicious osseous abnormality. UPPER ABDOMEN: Unremarkable. No reflux of contrast into the hepatic veins to suggest elevated right heart pressures. CT/CT angio chest PE protocol IMPRESSION: 1. No evidence of pulmonary emboli. 2. Mild emphysema and bronchial thickening. 3. 6 mm left lower lobe pulmonary nodule unchanged from 06/19/2020. VTE: negative. Fleischner criteria were utilized.
--- NOTE | ~2023-06-27 | XR_ITS ---
EXAMINATION: XR CHEST CLINICAL INFORMATION: Right upper quadrant and rib pain COMPARISON: Chest radiograph and CT chest dated 06/19/2020 TECHNIQUE: Frontal view of the chest was obtained. FINDINGS: No significant abnormality is noted involving the heart, lungs, mediastinum, bony thorax or soft tissues. At the time of the prior chest radiograph, the patient demonstrated pulmonary edema which has resolved. XR/XR chest 1V IMPRESSION: Unremarkable examination.
[2023-06-27 07:16] VITALS: BP 204/90; PULSE 95; RESP 18; TEMP 36.2; O2SAT 99; BMI 50.7
[2023-06-27 07:42] LABS: Basophils Absolute Auto 0.1 X10*3/uL (0.0-0.2); Basophils Percent Auto 0.7 % (0-2); Eosinophils Absolute Auto 0.3 X10*3/uL (0.0-0.4); Eosinophils Percent Auto 4.5 % (0-4); Hematocrit 43.6 % (37.0-47.0); Hemoglobin 14.2 g/dl (12.0-16.0); Imm Gran Abs Auto 0.01 X10*3/uL (0.00-0.03); Imm Gran Pct Auto 0.1 % (0.0-0.4); Lymphocytes Absolute Auto 1.9 X10*3/uL (1.2-4.9); Lymphocytes Percent Auto 27.9 % (20-40); MANUAL DIFF FLAG NO; Mean Corpuscular HGB Conc 32.6 g/dl (31.0-35.0); Mean Corpuscular Hemoglobin 28.6 pg (27.0-33.0); Mean Corpuscular Volume 87.9 fL (80.0-98.0); Monocytes Absolute Auto 0.5 X10*3/uL (0.1-1.2); Monocytes Percent Auto 6.7 % (2-11); Neutrophils Absolute Auto 4.1 x10*3/uL (2.0-8.3); Neutrophils Percent Auto 60.1 % (45-73); Platelet Count 211 X10*3/uL (160-400); Red Blood Count 4.96 X10*6/uL (4.20-5.50); Red Cell Distribution Width 15.1 % (11.0-16.0); White Blood Count 6.9 X10*3/uL (4.8-10.8)
[2023-06-27 07:44] LABS: Appearance Urine Clear; Color Urine Yellow; Glucose Urine UA Negative (Negative); Leukocyte Esterase Urine Negative (Negative); Nitrite Urine Negative (Negative); Specific Gravity - Urine 1.015 (1.005-1.025); UMIC TRIGGER UACC YES; Urine Blood Trace (Negative); Urine Ketones Negative (Negative); Urine Protein Negative (Neg-Trace)
[2023-06-27 07:49] LABS: Bacteria Urine None Seen (None Seen); Hyaline Casts Urine 0-2 /LPF (0-2); RBC Urine 0-2 /HPF (0-2); Squamous Epithelial Cell Urine 0-2 /HPF (0-2); WBC Urine 0-5 /HPF (0-5)
[2023-06-27 08:08] LABS: Alanine Aminotransferase 15 U/L (0-31); Albumin Level 3.9 g/dL (3.5-5.0); Alkaline Phosphatase 74 U/L (39-117); Anion Gap 11 (12-20); Aspartate Amino Transferase 15 U/L (5-31); Bilirubin Direct 0.3 mg/dL (0.0-0.5); Bilirubin Total 0.5 mg/dL (0.0-1.0); Blood Urea Nitrogen 12 mg/dL (9-16); Calcium 9.3 mg/dL (8.4-10.2); Carbon Dioxide 25 mmol/L (22-29); Chloride 106 mmol/L (96-108); Creatinine Clr Calc Pharmacy 100.7; Estimated Glomerular Filt Rate > 60; Glucose Random 115 mg/dL (60-115); Lipase 20 U/L (8-78); Sodium 138 mmol/L (135-145); Total Protein 8.4 g/dL (6.5-8.0)
--- NOTE | 2023-06-27 08:18 | ED_ITS ---
HPI - Abdominal Pain General Chief Complaint: Abdominal Pain Stated Complaint: r side pain Time Seen by Provider: 06/27/23 08:13 Source: patient, old records reviewed and program coordinator for residence life Mode of arrival: ambulatory Limitations: no limitations History of Present Illness HPI narrative: 58 yo female with PMH of endometrial cancer under surveillance s/p lap hysterectomy and bilateral BSO, anemia, HTN, here with c/o 3 months of intermittent R sided pleuritic chest pain that abruptly worsened this past week and has been severe for 24 hours. It hurts to take a deep breath on the R lower rib side. No trauma reported, no URI symptoms. She has never had a VTE before. No recent travel or procedures. MD elicited complaint: other (chest pain) Pertinent past history: other (prior endometrial cancer) Onset (ago): week(s) (1) Pain Consistency: intermittent Location: chest Severity: severe Quality: stabbing Radiation: none Migration to: no migration Exacerbating factors: other (inspiration) Relieving factors: nothing Associated symptoms: denies other symptoms Related Data Home Medications Medication Instructions Recorded Confirmed aspirin 81 mg tablet,delayed 1 tab PO DAILY 06/19/20 11/05/20 release meclizine 25 mg tablet 1 tab PO TID PRN dizziness 06/19/20 11/05/20 Previous Rx's Medication Instructions Recorded ferrous sulfate 325 mg (65 mg 1 tab PO DAILY #30 tabs 06/20/20 iron) tablet furosemide 20 mg tablet (Lasix) 20 mg PO DAILY #30 tabs 09/10/20 lisinopril 10 mg tablet 10 mg PO DAILY 90 days #90 tabs 05/08/21 amlodipine 10 mg tablet 10 mg PO DAILY 90 days #90 tabs 02/09/22 cyclobenzaprine 10 mg tablet 10 mg PO TID PRN muscle spasm #20 06/27/23 tabs lidocaine 5 % topical patch 1 patch topical DAILY #30 ea 06/27/23 Allergies Allergy/AdvReac Type Severity Reaction Status Date / Time No Known Allergies Allergy Verified 11/05/20 16:28 Review of Systems Review of Systems Constitutional : No Weight loss, No Fever, No Chills ENT/Mouth : No sore throat, No Rhinorrhea Eyes: No Eye Pain, No Swelling Cardiovascular : pos Chest Pain, no SOB, no Dyspnea on Exertion, No Orthopnea, No Edema, No Palpitations Respiratory : No Cough, No Sputum Gastrointestinal : no Nausea, No Vomiting, No Diarrhea, No abdominal Pain, No Hematochezia, No Melena Genitourinary : No Dysuria, No Urinary Frequency Musculoskeletal : No joint pain, No Myalgias, No Joint Swelling Skin : No Skin Lesions, No rash Neuro : No Weakness, No Numbness, No Dizziness, No Headache Psych : No Anxiety/Panic, No Depression All other systems reviewed and are negative [facility] Past Medical History Attestation statement: The following information was validated with the patient. Source: old records reviewed Medical History Essential hypertension Microcytic anemia Hospital discharge follow-up Morbid obesity with BMI of 50.0-59.9, adult Menorrhagia Elevated troponin Vertigo Surgical History H/O tubal ligation Family History Family History Mother Thyroid disease Father Cancer Other No cardiac disease Social History Social History Household Members: Family Housing: Apartment Do you presently have visiting nurse or other home services: No Alcohol intake: unknown Patient Tobacco Use Status: Never used Tobacco e-Cigarette/Vaping Use: Never Used Second Hand Smoke Exposure: No Advance Directives: Yes Advance Directives on File: Yes Advance Directives Date on File: 06/23/20 service: No Current occupational status: employed 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 Oriented X3. No acute distress. Eyes: Pupils equal, round and reactive to light. ENT: Pharynx normal. Neck: Normal inspection. Neck supple. CVS: Normal heart rate and rhythm. Pulses normal. Chest: slight ttp on R lower ribs no rash seen Respiratory: No respiratory distress. Breath sounds normal. Abdomen: Soft and nontender. negative arnold's sign Skin: Skin warm and dry. Normal skin color. Normal skin turgor. Extremities: No lower extremity edema. No calf ttp Neuro: Oriented X 3. No motor deficit. No sensory deficit. Course Course Course Narrative: pain improved with IV morphine Medical Decision Making Medical Decision Making [facility] Narrative: 58 yo female with PMH of endometrial cancer under surveillance s/p lap hysterectomy and bilateral BSO, anemia, HTN here with worsening R sided pleuritic chest pain at this time will obtain basic labs, CTA for VTE/mass could be MSK pain but also given hx need to rule out further pathology given chronicity and worsening features. IV morphine for pain. It is not exertional and only R sided lower doubt ACS Differential Diagnosis Differential Diagnoses: The differential diagnosis associated with the presentation includes mass, pleurisy, fracture, VTE, MSK pain Admission/Observation Consideration of admission/observation: Escalation of care including admission/observation considered labs and workup negative stable for DC can follow up with PCP Lab Data [facility] Lab Attestation statement: I reviewed the patient's lab results. 06/27/23 07:35 06/27/23 07:35 Labs: Lab Results 06/27/23 Range/Units 07:35 WBC 6.9 (4.8-10.8) X10*3/uL RBC 4.96 D (4.20-5.50) X10*6/uL Hgb 14.2 D (12.0-16.0) g/dl Hct 43.6 D (37.0-47.0) % MCV 87.9 (80.0-98.0) fL MCH 28.6 (27.0-33.0) pg MCHC 32.6 (31.0-35.0) g/dl RDW 15.1 (11.0-16.0) % Plt Count 211 (160-400) X10*3/uL MPV 11.0 (9.4-12.3) fL Immature Gran % (Auto) 0.1 (0.0-0.4) % Neut % (Auto) 60.1 (45-73) % Lymph % (Auto) 27.9 (20-40) % [place] % (Auto) 6.7 (2-11) % Eos % (Auto) 4.5 H (0-4) % Baso % (Auto) 0.7 (0-2) % Lymph # (Auto) 1.9 (1.2-4.9) X10*3/uL [place] # (Auto) 0.5 (0.1-1.2) X10*3/uL Eos # (Auto) 0.3 (0.0-0.4) X10*3/uL Baso # (Auto) 0.1 (0.0-0.2) X10*3/uL Abs Immat Gran (auto) 0.01 (0.00-0.03) X10*3/uL Absolute Neuts (auto) 4.1 (2.0-8.3) x10*3/uL Absolute Nucleated RBC 0.000 (0.0-0.012) X10*3/uL Nucleated RBC % (auto) 0.0 (0.0-0.2) /100WBC Sodium 138 (135-145) mmol/L Potassium 4.0 (3.3-5.1) mmol/L Chloride 106 (96-108) mmol/L Carbon Dioxide 25 (22-29) mmol/L Anion Gap 11 L (12-20) BUN 12 (9-16) mg/dL Creatinine 0.83 (0.5-1.4) mg/dL Estim Creat Clear Calc 100.7 Estimated GFR > 60 Random Glucose 115 (60-115) mg/dL Calcium 9.3 D (8.4-10.2) mg/dL Total Bilirubin 0.5 (0.0-1.0) mg/dL Direct Bilirubin 0.3 (0.0-0.5) mg/dL AST 15 (5-31) U/L ALT 15 (0-31) U/L Alkaline Phosphatase 74 (39-117) U/L Troponin I High Sens < 2.7 (<3.5-17.0) ng/L Total Protein 8.4 H (6.5-8.0) g/dL Albumin 3.9 (3.5-5.0) g/dL Lipase 20 (8-78) U/L Urine Color Yellow Urine Appearance Clear Urine pH 6.0 (5.0-9.0) Ur Specific [place] 1.015 (1.005-1.025) Urine Protein Negative (Neg-Trace) mg/dL Urine Glucose (UA) Negative (Negative) mg/dL Urine Ketones Negative (Negative) mg/dL Urine Blood Trace H (Negative) Urine Nitrite Negative (Negative) Ur Leukocyte Esterase Negative (Negative) Urine RBC 0-2 (0-2) /HPF Urine WBC 0-5 (0-5) /HPF Ur Squamous Epith Cells 0-2 (0-2) /HPF Urine Bacteria None Seen (None Seen) Hyaline Casts 0-2 (0-2) /LPF Independent Interpretation I performed an independent interpretation of an: CT Scan (no cause for patients pain) Radiology Impression Discussion of test interpretation with radiology: I have reviewed the radiologist's reading. External Record Review External record reviewed: Outpatient record Prescription Management I considered prescription management with: Pain Medication and Other Medications Administered Discontinued Medications Generic Name Dose Route Start Last Admin Trade Name Freq PRN Reason Stop Dose Admin Iohexol 100 ml 06/27/23 09:54 06/27/23 09:54 Iohexol 350 Mg/Ml 100 Ml Infus..Btl IV 06/27/23 09:55 70 ml ONCE ONE Administration Morphine Sulfate 4 mg 06/27/23 08:25 06/27/23 08:54 Morphine Sulfate 4 Mg/Ml Cartridge IVPUSH 06/27/23 08:26 4 mg ONCE ONE Administration Protocol Ondansetron HCl 4 mg 06/27/23 08:25 06/27/23 08:52 Ondansetron Hcl 4 Mg/2 Ml Vial IVPUSH 06/27/23 08:26 4 mg ONCE ONE Administration Critical Care Time Critical Care Time Critical Care Time: Yes Total Critical Care Time: 35 Attestation: IV morphine with improvement in pain, review of records I attest to this time spent taking care of the patient Discharge Plan Discharge Clinical Impression: Rib pain on right side Patient Disposition: Home, Self-Care Instructions: Thoracic Pain (ED) Additional Instructions: labs reassuring. CT scan shows normal bones, normal lungs, liver is normal, no clot or mass seen. chronic nodule in lung that is stable for last 3 years can follow up with PCP and likely get yearly surveillance return for any worsening symptoms or concerns. PULMONARY ARTERIES: No pulmonary emboli. THORACIC AORTA: No aneurysm. LUNG: Mild emphysematous changes are present along with bronchial thickening. There is a 6 mm left lower lobe pulmonary nodule in the lateral costophrenic sulcus (7:316) unchanged from 06/19/2020. No focal consolidation, additional nodules or masses. PLEURA: No pleural effusion or pneumothorax. MEDIASTINUM: Heart size upper limits of normal. No pericardial effusion. No hilar or mediastinal lymphadenopathy. No evidence of septal bowing or right heart strain. CORONARY ARTERY CALCIFICATION: None visualized on this study. CHEST WALL/AXILLA: No axillary or internal mammary lymphadenopathy. OSSEOUS STRUCTURES: No acute or suspicious osseous abnormality. UPPER ABDOMEN: Unremarkable. No reflux of contrast into the hepatic veins to suggest elevated right heart pressures. Prescriptions: New cyclobenzaprine 10 mg tablet 10 mg PO TID PRN (Reason: muscle spasm) Qty: 20 0RF lidocaine 5 % adhesive patch,medicated 1 patch topical DAILY Qty: 30 0RF Rx Instructions: leave on most painful area for up to 12 hrs No Action furosemide [Lasix] 20 mg tablet 20 mg PO DAILY Qty: 30 6RF lisinopril 10 mg tablet 10 mg PO DAILY 90 Days Qty: 90 1RF amlodipine 10 mg tablet 10 mg PO DAILY 90 Days Qty: 90 1RF aspirin 81 mg tablet,delayed release (DR/EC) 1 tab PO DAILY meclizine 25 mg tablet 1 tab PO TID PRN (Reason: dizziness) ferrous sulfate 325 mg (65 mg iron) tablet 1 tab PO DAILY Qty: 30 0RF Print Language: Solomon Islander
[2023-06-27] MEDS: ondansetron HCL 4 MG/2 ML VIAL IVPUSH (08:52)
[2023-06-27] MEDS: Morphine Sulfate 4 MG/ML CARTRIDGE IVPUSH (08:54)
--- NOTE | 2023-06-27 08:58 | PC.NURSE ---
patient resting quietly in bed, respirations equal and unlabored. patient medicated per MAR, having 6/10 right sided upper abd pain, she states the pain comes and goes.
[2023-06-27 09:14] LABS: Troponin-I High Sensitivity < 2.7 ng/L (<3.5-17.0)
[2023-06-27] MEDS: iohexoL 350 MG/ML 100 ML INFUS..BTL IV (09:54)
[2023-06-27 12:21] VITALS: BP 174/93; PULSE 62; RESP 20; TEMP 36.4; O2SAT 100
== END 2023-06-27 12:36 | disposition home or self-care (01) ==
PROVIDERS: Emergency Provider Emergency Medicine; PCP Internal Medicine
DX: R07.81 Pleurodynia (principal); I10 Essential (primary) hypertension
CPT/HCPCS: 36415; 71045; 71275; 80048; 80076; 81001; 83690; 84484; 85025; 96374; 96375; 99283; 99284; J2270; J2405; Q9967

== ENCOUNTER 2023-10-06 23:23 | Emergency (ER) | payer OTHER, SELFPAY ==
--- NOTE | ~2023-10-06 | XR_ITS ---
EXAMINATION: XR KNEE, RIGHT CLINICAL INFORMATION: Pain. COMPARISON: None available. TECHNIQUE: AP and lateral radiographs of the right knee FINDINGS: Marked medial compartment joint space narrowing and moderate osteophytosis of the medial femoral condyle. Moderate patellofemoral osteophytosis. No gross joint effusion. No fractures visualized. XR/XR knee RT 2V IMPRESSION: Osteoarthritis with findings most present in the medial compartment where marked joint space narrowing is noted.
[2023-10-06 23:40] VITALS: BP 185/74; PULSE 83; RESP 18; TEMP 37.1; O2SAT 96; BMI 54.3
[2023-10-07 00:16] VITALS: BP 182/76; PULSE 75; RESP 18; TEMP 36.6; O2SAT 96
--- NOTE | 2023-10-07 02:58 | ED.EXTPRO ---
HPI - Extremity Problem General Chief complaint: Extremity Problem Stated complaint: right leg pain x1 month Time Seen by Provider: 10/07/23 02:43 Source: patient Mode of arrival: ambulatory Limitations: no limitations History of Present Illness ED Provider: alcides GUNDERSON Narrative: Patient obese complaining of pain in the right knee does have history of osteoarthritis pain is in right knee and right thigh increases on ambulation no recent trauma no back pain has not seen any specialist for knee at Related Data Home Medications ?Medication ?Instructions ?Recorded ?Confirmed aspirin 81 mg tablet,delayed 1 tab PO DAILY 06/19/20 11/05/20 release meclizine 25 mg tablet 1 tab PO TID PRN dizziness 06/19/20 11/05/20 Previous Rx's ?Medication ?Instructions ?Recorded ferrous sulfate 325 mg (65 mg 1 tab PO DAILY #30 tabs 06/20/20 iron) tablet furosemide 20 mg tablet (Lasix) 20 mg PO DAILY #30 tabs 09/10/20 lisinopril 10 mg tablet 10 mg PO DAILY 90 days #90 tabs 05/08/21 amlodipine 10 mg tablet 10 mg PO DAILY 90 days #90 tabs 02/09/22 cyclobenzaprine 10 mg tablet 10 mg PO TID PRN muscle spasm #20 06/27/23 tabs lidocaine 5 % topical patch 1 patch topical DAILY #30 ea 06/27/23 ibuprofen 600 mg tablet 600 mg PO Q6H PRN fever or pain 10/07/23 #30 tabs tramadol 50 mg tablet 50 mg PO Q6H PRN pain #20 tabs 10/07/23 Allergies Allergy/AdvReac Type Severity Reaction Status Date / Time No Known Allergies Allergy Verified 10/06/23 23:43 Review of Systems Review of Systems: Yes all other systems are reviewed and are negative [facility] Past Medical History Medical History Essential hypertension Microcytic anemia Hospital discharge follow-up Morbid obesity with BMI of 50.0-59.9, adult Menorrhagia Elevated troponin Vertigo Surgical History H/O tubal ligation Family History Family History Mother Thyroid disease Father Cancer Other No cardiac disease Social History Social History Household Members: Family Housing: Apartment Do you presently have visiting nurse or other home services: No Alcohol intake: unknown Patient Tobacco Use Status: Never used Tobacco e-Cigarette/Vaping Use: Never Used Second Hand Smoke Exposure: No Advance Directives: Yes Advance Directives on File: Yes Advance Directives Date on File: 06/23/20 service: No Current occupational status: employed 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 Oriented X3. No acute distress. ENT: Pharynx normal. Oral Mucosa moist Neck: Normal inspection. Neck supple. CVS: Normal heart rate and rhythm. Pulses normal. Respiratory: No respiratory distress. Equal air entry bilateral, Abdomen: Soft and nontender. Bowel sounds are present, no mass palpable, no CVA tenderness Skin: Skin warm and dry. Normal skin color. Normal skin turgor. Extremities: No lower extremity edema. No calf tenderness diffuse tenderness right knee no effusion back: No midline tenderness SLR negative Neuro: Oriented X 3. No motor deficit. No sensory deficit.No cerebellar signs , cranial nerves II-XII intact Medications Administered Discontinued Medications Generic Name Dose Route Start Last Admin Trade Name Larryq PRN Reason Stop Dose Admin Ibuprofen 600 mg 10/07/23 02:55 10/07/23 03:03 Ibuprofen 600 Mg Tablet PO 10/07/23 02:56 600 mg ONCE ONE Administration Oxycodone HCl 10 mg 10/07/23 02:55 10/07/23 03:03 Oxycodone Hcl Immed Release 5 Mg Tablet PO 10/07/23 02:56 10 mg ONCE ONE Administration Medical Decision Making Medical Decision Making MDM Narrative: Patient with right knee pain clinically arthritis x-ray showed severe osteoarthritis no signs of deep vein thrombosis no calf tenderness no lumbar spine tenderness discharge patient home on tramadol. Oj wrap was applied to the right knee Independent Interpretation I performed an independent interpretation of an: Plain X-Ray Radiology Impression Discussion of test interpretation with radiology: I have reviewed the radiologist's reading. Discharge Plan Discharge Clinical Impression: Osteoarthritis of right knee Patient Disposition: Home, Self-Care Instructions: Osteoarthritis (ED) Additional Instructions: Your pain in right leg is from osteoarthritis of the right knee Wear the Oj wrap for support Pain medication as prescribed Follow with Orthopedics Prescriptions: New tramadol 50 mg tablet 50 mg PO Q6H PRN (Reason: pain) Qty: 20 0RF ibuprofen 600 mg tablet 600 mg PO Q6H PRN (Reason: fever or pain) Qty: 30 0RF No Action furosemide [Lasix] 20 mg tablet 20 mg PO DAILY Qty: 30 6RF lisinopril 10 mg tablet 10 mg PO DAILY 90 Days Qty: 90 1RF amlodipine 10 mg tablet 10 mg PO DAILY 90 Days Qty: 90 1RF aspirin 81 mg tablet,delayed release (DR/EC) 1 tab PO DAILY meclizine 25 mg tablet 1 tab PO TID PRN (Reason: dizziness) ferrous sulfate 325 mg (65 mg iron) tablet 1 tab PO DAILY Qty: 30 0RF cyclobenzaprine 10 mg tablet 10 mg PO TID PRN (Reason: muscle spasm) Qty: 20 0RF lidocaine 5 % adhesive patch,medicated 1 patch topical DAILY Qty: 30 0RF Rx Instructions: leave on most painful area for up to 12 hrs Referrals: Marcos Alonzo MD [Physician] - 2 weeks Print Language: Romansh
[2023-10-07] MEDS: oxyCODONE HCl Immed Release 5 MG TABLET 10 MG PO (03:03)
[2023-10-07] MEDS: Ibuprofen 600 MG TABLET PO (03:03)
[2023-10-07 04:15] VITALS: BP 109/72; PULSE 102; RESP 16; TEMP 36.9; O2SAT 98
[2023-10-07 04:19] VITALS: BP 138/55; PULSE 66; RESP 17; TEMP 36.6; O2SAT 95
== END 2023-10-07 04:15 | disposition home or self-care (01) ==
PROVIDERS: Emergency Provider Internal Medicine
DX: M17.11 Unilateral primary osteoarthritis, right knee (principal)
CPT/HCPCS: 73560; 99283; 99284

== ENCOUNTER 2023-11-04 08:17 | Outpatient (REF) | payer OTHER, SELFPAY ==
--- NOTE | ~2023-11-04 | XR_ITS ---
EXAMINATION: XR KNEE, LEFT CLINICAL INFORMATION: Pain. COMPARISON: None available. TECHNIQUE: AP standing view of bilateral knees as well as sunrise view of the right knee. FINDINGS: Diffuse demineralization. Marked narrowing of the medial compartment of the right knee. Small tricompartmental osteophytes in the right knee. Marked narrowing of the medial compartment of the left knee with small medial and lateral marginal osteophytes. XR/XR knee LT 2V IMPRESSION: Marked degenerative changes bilateral knees.
--- NOTE | ~2023-11-04 | XR_ITS ---
EXAMINATION: XR KNEE, LEFT CLINICAL INFORMATION: Pain. COMPARISON: None available. TECHNIQUE: AP standing view of bilateral knees as well as sunrise view of the right knee. FINDINGS: Diffuse demineralization. Marked narrowing of the medial compartment of the right knee. Small tricompartmental osteophytes in the right knee. Marked narrowing of the medial compartment of the left knee with small medial and lateral marginal osteophytes. XR/XR knee RT 1V IMPRESSION: Marked degenerative changes bilateral knees.
== END 2023-11-04 08:18 | disposition home or self-care (01) ==
LOC: HO.HOSX 08:17
PROVIDERS: Visit Provider Physician Assistant
DX: M23.8X2 Other internal derangements of left knee (principal); M23.8X1 Other internal derangements of right knee
CPT/HCPCS: 73560; 99202

== ENCOUNTER 2023-11-04 10:27 | Outpatient (AMB) | payer OTHER, SELFPAY ==
--- NOTE | 2023-11-04 10:42 | A.OFFVIS_ITS ---
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 Patient reports her pain has been present for about a month. Denies injury. anterior lateral and posterior. throbbing pain with extension. No previous tx. getting up she will feel electric senstation in her leg. a little pain on her left knee. 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 also she lives on [address] floor. 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 She claims that for over a month, she has been experiencing pain. She denies injury. Her pain is located at the anterior, lateral, and posterior aspect of the left knee. She reports throbbing pain with extension. She denies any previous treatment. She claims that as soon as she stands up, her leg would feel like electric sensation in her leg and has mild discomfort in her left knee. 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 She also reside on the 4th floor. She has tried natural remedy. She has a history of morbid obesity with a BMI of 54. [facility] Medical History (Updated 10/08/23 @ 00:01 by Checo Khan) Essential hypertension Microcytic anemia Hospital discharge follow-up Morbid obesity with BMI of 50.0-59.9, adult Menorrhagia Elevated troponin Vertigo Surgical History (Updated 11/04/23 @ 10:48 by CASSIE Willis) Hx of hysterectomy H/O tubal ligation Family History Mother Thyroid disease Father Cancer Other No cardiac disease Social History Household Members: Family Housing: Apartment Do you presently have visiting nurse or other home services: No Alcohol intake: unknown Patient Tobacco Use Status: Never used Tobacco e-Cigarette/Vaping Use: Never Used Second Hand Smoke Exposure: No Advance Directives Date on File: 06/23/20 service: No Current occupational status: employed 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 Current occupational exposures/hazards: No Review of Systems Const All systems reviewed & are unremarkable except as noted in HPI and below Physical Exam Vital Signs: BMI result Body Mass Index 54.2 Const General: cooperative, healthy appearing, comfortable and no acute distress Orientation/consciousness: patient oriented x3 Neck Neck: Yes normal visual inspection and Yes no JVD Chest Chest palpation & inspection: normal inspection of the chest Resp Effort & Inspection: normal respiratory effort Auscultation: clear to auscultation bilaterally, crackles (no), rales (no), rhonchi (no) and wheezes (no) Cardio Jugular venous distension: no JVD Rate: regular rate Rhythm: regular rhythm Heart sounds: S1 normal heart sound present, S2 normal heart sound present, Murmur heart sound present (no) and Rub heart sound present (no) Neuro General: patient oriented x3 Extrem Other: Right knee: Skin intact, no erythema or joint effusion. Tenderness along the medial joint line. Full ROM with crepitus. Negative Glen?s. No ligamentous laxity. NVI. General: Yes normal to inspection, Yes no pedal edema and Yes no calf tenderness Psych Appearance: grossly normal Mental Status: mental status grossly normal Speech and movement: Normal speech and movement present Results Reviewed Results Reviewed: Xrays were obtained in the office today and personally reviewed by me of the right knee show severe oa Assessment & Plan Assessment & Plan (1) Osteoarthritis of right knee: Code(s): M17.11 - Unilateral primary osteoarthritis, right knee Category: Medical Plan We discussed options which include PT, NSAIDs and injections. The patient will defer on the injection today and proceed with PT and NSAIDs. If symptoms persist, she will contact me for an injection, otherwise, PRN. Orders: Orders XR knee RT 1V Today M25.561 - Pain in right knee PT Evaluation and Treatment Today M17.11 - Unilateral primary osteoarthritis, right knee Patient Instructions: Scribed for Rogelio Montanez PA-C, by Jaylen Burrell medical staff physician, on 11/04/2023 at 10:30 AM EST. IRogelio PA-C, have personally reviewed and agree with the information entered by the scribe. Coding Level of Care Code New Pt Level 3 (49786) Diagnoses Osteoarthritis of right knee M17.11
[2023-11-04 10:51] VITALS: BMI 54.2
== END 2023-11-04 11:21 | disposition home or self-care (01) ==
PROVIDERS: Visit Provider Physician Assistant
DX: M17.11 Unilateral primary osteoarthritis, right knee (principal)
CPT/HCPCS: 99203

== ENCOUNTER 2024-09-18 02:01 | Emergency (ER) | payer SELFPAY ==
--- NOTE | 2024-09-18 | ECG_ITS ---
Test Reason : dizziness Blood Pressure : */* mmHG Vent. Rate : 76 BPM Atrial Rate : 76 BPM P-R Int : 172 ms QRS Dur : 98 ms QT Int : 430 ms P-R-T Axes : 0 11 42 degrees QTcB Int : 483 ms Normal sinus rhythm Prolonged QT Abnormal ECG When compared with ECG of 19-Jun-2020 06:20, No significant change was found Referred By: Generic ED Physician Electronically Signed By: Gerardo Null
[2024-09-18 02:29] LABS: MANUAL DIFF FLAG NO
[2024-09-18 02:30] LABS: Basophils Absolute Auto 0.1 X10*3/uL (0.0-0.2); Basophils Percent Auto 0.7 % (0-2); Eosinophils Absolute Auto 0.4 X10*3/uL (0.0-0.4); Eosinophils Percent Auto 5.4 % (0-4); Hematocrit 35.7 % (37.0-47.0); Hemoglobin 11.7 g/dl (12.0-16.0); Imm Gran Abs Auto 0.02 X10*3/uL (0.00-0.03); Imm Gran Pct Auto 0.3 % (0.0-0.4); Lymphocytes Absolute Auto 2.4 X10*3/uL (1.2-4.9); Lymphocytes Percent Auto 31.9 % (20-40); Mean Corpuscular HGB Conc 32.8 g/dl (31.0-35.0); Mean Corpuscular Hemoglobin 28.5 pg (27.0-33.0); Mean Corpuscular Volume 87.1 fL (80.0-98.0); Mean Platelet Volume 10.8 fL (9.4-12.3); Monocytes Absolute Auto 0.7 X10*3/uL (0.1-1.2); Monocytes Percent Auto 9.4 % (2-11); Neutrophils Percent Auto 52.3 % (45-73); Platelet Count 165 X10*3/uL (160-400); Red Cell Distribution Width 15.2 % (11.0-16.0); White Blood Count 7.6 X10*3/uL (4.8-10.8)
[2024-09-18 02:41] VITALS: BP 146/82; BP 185/80; PULSE 86; PULSE 94; RESP 18; TEMP 36.4; O2SAT 95; O2SAT 97; BMI 56.9
[2024-09-18 02:46] LABS: Alanine Aminotransferase 15 U/L (0-31); Albumin Level 3.7 g/dL (3.5-5.0); Alkaline Phosphatase 64 U/L (39-117); Anion Gap 13 (12-20); Aspartate Amino Transferase 20 U/L (5-31); Bilirubin Total 0.4 mg/dL (0.0-1.0); Blood Urea Nitrogen 15 mg/dL (9-16); Calcium 9.1 mg/dL (8.4-10.2); Carbon Dioxide 25 mmol/L (22-29); Chloride 105 mmol/L (96-108); Creatinine Clr Calc Pharmacy 107.3; Estimated Glomerular Filt Rate > 60; Glucose Random 182 mg/dL (60-115); Lipase 18 U/L (8-78); Magnesium 1.8 mg/dL (1.6-2.6); Potassium 3.6 mmol/L (3.3-5.1); Sodium 139 mmol/L (135-145); Total Protein 7.6 g/dL (6.5-8.0)
--- NOTE | 2024-09-18 02:48 | ED_ITS ---
HPI - Dizziness General Chief Complaint: Dizziness Stated Complaint: DIZZINESS/COLD SWEATS/CHILLS Time Seen by Provider: 09/18/24 02:38 Source: patient, family and EMS Mode of arrival: EMS Limitations: language barrier and other (Not feeling well) History of Present Illness ED Provider: HPI Narrative: 59-year-old woman here with her grandson, she has history of vertigo presenting with dizziness, sweats, started earlier today worse with head positioning, also complaining of nonspecific chest pain but primarily she feels that the room is spinning. I did time of my evaluation, patient was not able to engage much in conversation, she wanted her grandson to explain her situation however she is able to answer my and yes and no questions. Related Data Home Medications ?Medication ?Instructions ?Recorded ?Confirmed aspirin 81 mg tablet,delayed 1 tab PO DAILY 06/19/20 11/05/20 release meclizine 25 mg tablet 1 tab PO TID PRN dizziness 06/19/20 11/05/20 Previous Rx's ?Medication ?Instructions ?Recorded ferrous sulfate 325 mg (65 mg 1 tab PO DAILY #30 tabs 06/20/20 iron) tablet furosemide 20 mg tablet (Lasix) 20 mg PO DAILY #30 tabs 09/10/20 lisinopril 10 mg tablet 10 mg PO DAILY 90 days #90 tabs 05/08/21 amlodipine 10 mg tablet 10 mg PO DAILY 90 days #90 tabs 02/09/22 cyclobenzaprine 10 mg tablet 10 mg PO TID PRN muscle spasm #20 06/27/23 tabs lidocaine 5 % topical patch 1 patch topical DAILY #30 ea 06/27/23 ibuprofen 600 mg tablet 600 mg PO Q6H PRN fever or pain 10/07/23 #30 tabs tramadol 50 mg tablet 50 mg PO Q6H PRN pain #20 tabs 10/07/23 meclizine 12.5 mg tablet 12.5 mg PO TID PRN vertigo 5 days 09/18/24 #20 tabs Allergies Allergy/AdvReac Type Severity Reaction Status Date / Time No Known Allergies Allergy Verified 09/18/24 02:43 Review of Systems 2 Constitutional: Constitutional: Reports as per [facility] Past Medical History Medical History (Updated 09/18/24 @ 05:02 by Danish Trimble DO) Essential hypertension Microcytic anemia Hospital discharge follow-up Morbid obesity with BMI of 50.0-59.9, adult Menorrhagia Elevated troponin Vertigo Surgical History (Updated 11/04/23 @ 10:48 by CASSIE Willis) Hx of hysterectomy H/O tubal ligation Family History Family History Mother Thyroid disease Father Cancer Other No cardiac disease Social History Social History Household Members: Family Housing: Apartment Do you presently have visiting nurse or other home services: No Alcohol intake: unknown Patient Tobacco Use Status: Never used Tobacco e-Cigarette/Vaping Use: Never Used Second Hand Smoke Exposure: No Use of substances other than those prescribed or required for medical reasons: No Advance Directives: Yes Advance Directives on File: Yes Advance Directives Date on File: 06/23/20 Do you have a plan to hurt others: No Plan Patient : No service: No Current occupational status: employed 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 Current occupational exposures/hazards: No Physical Exam 2 Vital Signs: Vital Signs: Last Vital Signs Temp 97.5 F 09/18/24 02:41 Pulse 86 09/18/24 02:41 Resp 18 09/18/24 02:41 BP 185/80 H 09/18/24 02:41 Pulse Ox 95 09/18/24 02:41 O2 Del Method Room Air 09/18/24 02:41 BMI result Body Mass Index 56.9 Const: Other: * Gen: ?Anxious, nauseous * HEENT: PERRLA, EOMI, MMM, * Neck: Supple, no LAD * CV: RRR, no obvious murmurs appreciated * Resp: ?No wheezing rales rhonchi no stridor moving air well * Abd: ?Bowel sounds are present, no tenderness no rebound no rigidity * MSK: FROM, strength 5/5 all extremities * Skin: Warm, dry, intact, * Neuro: ?Alert and oriented x3, moving upper and lower extremities symmetrically, no obvious facial asymmetry noted no dysmetria noted upper or lower extremities, she does have right-sided horizontal nonsustained nystagmus without vertical or rotary components Medications Administered Discontinued Medications Generic Name Dose Route Start Last Admin Trade Name Freq PRN Reason Stop Dose Admin Diazepam 2.5 mg 09/18/24 02:50 09/18/24 02:57 Diazepam 10 Mg/2 Ml Cartridge IVPUSH 09/18/24 02:51 2.5 mg STAT STA Administration Diphenhydramine HCl 12.5 mg 09/18/24 02:50 09/18/24 02:57 Diphenhydramine Hcl 50 Mg/Ml Vial IVPUSH 09/18/24 02:51 12.5 mg ONCE ONE Administration Sodium Chloride 1,000 mls @ 999 mls/hr 09/18/24 03:00 09/18/24 04:19 Ns IV 09/18/24 04:00 Infused .Q1H1M LANI Infusion Ondansetron HCl 4 mg 09/18/24 02:50 09/18/24 02:57 Ondansetron Hcl 4 Mg/2 Ml Vial IVPUSH 09/18/24 02:51 4 mg ONCE ONE Administration Scopolamine 1.5 mg 09/18/24 02:50 09/18/24 02:58 Scopolamine 1.5 Mg Patch.Td.3 EAR-BEHIND 09/18/24 02:51 1.5 mg ONCE ONE Administration Medical Decision Making Medical Decision Making [facility] Narrative: Physical examination is consistent with right-sided peripheral vertigo without any findings to suspect cerebellar stroke did not feel that further imaging such as CT is indicated this time we will medicate for her symptoms we will re- evaluate and determine whether further studies are necessary or she necessitates admission if she does not feel better, her ECG does not reveal any underlying dysrhythmia. This is a recurrent issue and she has had this in the past. 0500: patient re-evaluated, she feels much better, I have asked her to questions, discussed her negative workup including EKG, blood work re-evaluated, actually her nystagmus is improved, we will be discharging Differential Diagnosis Differential Diagnoses: The differential diagnosis associated with the presentation includes Cerebellar stroke, BPPV, ACS, dehydration, electrolyte derangements Admission/Observation Consideration of admission/observation: Escalation of care including admission/observation considered Lab Data [facility] Lab Attestation statement: I reviewed the patient's lab results. 09/18/24 02:24 09/18/24 02:24 Labs: Lab Results 09/18/24 Range/Units 02:24 WBC 7.6 (4.8-10.8) X10*3/uL RBC 4.10 L (4.20-5.50) X10*6/uL Hgb 11.7 L (12.0-16.0) g/dl Hct 35.7 L (37.0-47.0) % MCV 87.1 (80.0-98.0) fL MCH 28.5 (27.0-33.0) pg MCHC 32.8 (31.0-35.0) g/dl RDW 15.2 (11.0-16.0) % Plt Count 165 (160-400) X10*3/uL MPV 10.8 (9.4-12.3) fL Immature Gran % (Auto) 0.3 (0.0-0.4) % Neut % (Auto) 52.3 (45-73) % Lymph % (Auto) 31.9 (20-40) % Kent % (Auto) 9.4 (2-11) % Eos % (Auto) 5.4 H (0-4) % Baso % (Auto) 0.7 (0-2) % Lymph # (Auto) 2.4 (1.2-4.9) X10*3/uL [place] # (Auto) 0.7 (0.1-1.2) X10*3/uL Eos # (Auto) 0.4 (0.0-0.4) X10*3/uL Baso # (Auto) 0.1 (0.0-0.2) X10*3/uL Abs Immat Gran (auto) 0.02 (0.00-0.03) X10*3/uL Absolute Neuts (auto) 4.0 (2.0-8.3) x10*3/uL Absolute Nucleated RBC 0.000 (0.0-0.012) X10*3/uL Nucleated RBC % (auto) 0.0 (0.0-0.2) /100WBC Sodium 139 (135-145) mmol/L Potassium 3.6 (3.3-5.1) mmol/L Chloride 105 (96-108) mmol/L Carbon Dioxide 25 (22-29) mmol/L Anion Gap 13 (12-20) BUN 15 (9-16) mg/dL Creatinine 0.80 (0.5-1.4) mg/dL Estim Creat Clear Calc 107.3 Estimated GFR > 60 Random Glucose 182 H (60-115) mg/dL Calcium 9.1 (8.4-10.2) mg/dL Magnesium 1.8 (1.6-2.6) mg/dL Total Bilirubin 0.4 (0.0-1.0) mg/dL AST 20 (5-31) U/L ALT 15 (0-31) U/L Alkaline Phosphatase 64 (39-117) U/L Troponin I High Sens 5.6 D (<3.5-17.0) ng/L Total Protein 7.6 (6.5-8.0) g/dL Albumin 3.7 (3.5-5.0) g/dL Lipase 18 (8-78) U/L Independent Interpretation I performed an independent interpretation of an: EKG (76 beats per minute, otherwise normal ECG without dysrhythmia, AV ryder blocks or ST-T changes to suspect underlying ACS, my independent interpretation) Discharge Plan Discharge Clinical Impression: Vertigo Patient Disposition: Home, Self-Care Additional Instructions: Evaluated with dizziness, your physical examination was consistent with vertigo to the right side, your workup included blood work, EKG as well as physical examination and vital signs all of which has been reassuring except the findings consistent with vertigo, you were given medications and IV fluids with improvement, continue using meclizine as prescribed and you can keep the patch behind her left ear in place for the next 3 days, any worsening issues concerns come back to the ER otherwise follow up with the PCP. Prescriptions: New meclizine 12.5 mg tablet 12.5 mg PO TID PRN (Reason: vertigo) 5 Days Qty: 20 0RF No Action furosemide [Lasix] 20 mg tablet 20 mg PO DAILY Qty: 30 6RF lisinopril 10 mg tablet 10 mg PO DAILY 90 Days Qty: 90 1RF amlodipine 10 mg tablet 10 mg PO DAILY 90 Days Qty: 90 1RF aspirin 81 mg tablet,delayed release (DR/EC) 1 tab PO DAILY meclizine 25 mg tablet 1 tab PO TID PRN (Reason: dizziness) ferrous sulfate 325 mg (65 mg iron) tablet 1 tab PO DAILY Qty: 30 0RF cyclobenzaprine 10 mg tablet 10 mg PO TID PRN (Reason: muscle spasm) Qty: 20 0RF lidocaine 5 % adhesive patch,medicated 1 patch topical DAILY Qty: 30 0RF Rx Instructions: leave on most painful area for up to 12 hrs tramadol 50 mg tablet 50 mg PO Q6H PRN (Reason: pain) Qty: 20 0RF ibuprofen 600 mg tablet 600 mg PO Q6H PRN (Reason: fever or pain) Qty: 30 0RF Print Language: Swedish
[2024-09-18 02:50] LABS: Troponin-I High Sensitivity 5.6 ng/L (<3.5-17.0)
[2024-09-18] MEDS: ondansetron HCL 4 MG/2 ML VIAL IVPUSH (02:57)
[2024-09-18] MEDS: diphenhydrAMINE HCL 50 MG/ML VIAL 12.5 MG IVPUSH (02:57)
[2024-09-18] MEDS: diazePAM 10 MG/2 ML CARTRIDGE 2.5 MG IVPUSH (02:57)
[2024-09-18] MEDS: 0.9 % Sodium Chloride 1,000 ML 999 ML IV (02:58)
[2024-09-18] MEDS: Scopolamine 1.5 MG PATCH.TD.3 EAR-BEHIND (02:58)
[2024-09-18 05:13] VITALS: BP 144/53; PULSE 68; RESP 16; TEMP 36.4; O2SAT 99
--- NOTE | 2024-09-18 05:13 | PC.NURSE ---
pt reports feeling much better after medication administration.
[2024-09-18 05:14] VITALS: BP 144/53; PULSE 68; RESP 16; TEMP 36.4; O2SAT 99
== END 2024-09-18 05:14 | disposition home or self-care (01) ==
PROVIDERS: Emergency Provider Emergency Medicine
DX: R42 Dizziness and giddiness (principal); I10 Essential (primary) hypertension; C55 Malignant neoplasm of uterus, part unspecified; E66.9 Obesity, unspecified; Z68.43 Body mass index [BMI] 50.0-59.9, adult; Z79.82 Long term (current) use of aspirin; Z79.899 Other long term (current) drug therapy
CPT/HCPCS: 36415; 80053; 83690; 83735; 84484; 85025; 93005; 96361; 96374; 96375; 99284; 99285; J1200; J2405; J3360

== ENCOUNTER → 2024-09-18 02:26 | Outpatient (BNV) | payer SELFPAY | PROVIDERS: Emergency Provider Emergency Medicine; Visit Provider Internal Medicine Cardiovascular Disease | DX: R94.31 Abnormal electrocardiogram [ECG] [EKG] (principal); R42 Dizziness and giddiness | CPT/HCPCS: 93010 ==

== ENCOUNTER 2024-11-07 01:25 | Emergency (ER) | payer OTHER, SELFPAY ==
--- NOTE | 2024-11-07 | ECG_ITS ---
Test Reason : ABDOMINAL PAIN Blood Pressure : */* mmHG Vent. Rate : 72 BPM Atrial Rate : 72 BPM P-R Int : 108 ms QRS Dur : 100 ms QT Int : 428 ms P-R-T Axes : 63 19 45 degrees QTcB Int : 468 ms Sinus rhythm with short NE Otherwise normal ECG When compared with ECG of 18-Sep-2024 02:26, NE interval has decreased Referred By: Generic ED Physician Electronically Signed By: AKILAH NAJERA
--- NOTE | ~2024-11-07 | XR_ITS ---
CLINICAL HISTORY: history of constipation, LLQ abd pain 2 view abdomen, AP chest Comparison: None provided Findings: No consolidation or effusion. The heart size is within normal limits. Normal bowel gas pattern. No pneumoperitoneum or pneumatosis. There are no acute fractures. IMPRESSION: No acute findings. This document has been electronically signed by: Carlos Zheng on 11/07/2024 07:36:34
[2024-11-07 01:37] VITALS: BP 165/70; PULSE 78; RESP 18; TEMP 36.6; O2SAT 99; BMI 53.2
[2024-11-07 02:06] LABS: Hematocrit 37.7 % (37.0-47.0); Hemoglobin 12.4 g/dl (12.0-16.0); Mean Corpuscular HGB Conc 32.9 g/dl (31.0-35.0); Mean Corpuscular Hemoglobin 28.5 pg (27.0-33.0); Mean Corpuscular Volume 86.7 fL (80.0-98.0); NRBC Abs Auto 0.000 X10*3/uL (0.0-0.012); NRBC Pct Auto 0.0 /100WBC (0.0-0.2); Platelet Count 185 X10*3/uL (160-400); Red Blood Count 4.35 X10*6/uL (4.20-5.50); White Blood Count 8.8 X10*3/uL (4.8-10.8)
--- OUTSIDE RECORDS SUMMARY | 2024-11-07 02:06 | XMS_ITS | Clinical Summary ---
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 Name Role Phone Unavailable Primary Care Provider Unavailabl e Medications hydroCHLOROthiazid e (HYDRODiuril) 25 MG tablet 01/01/2010 Active Active Problems Problem Noted Date Diagnosed Date Preventative health care 02/09/2023 Overview (02/09/2023): -next physical exam due after -eye care facilitated by -dental home is Social History Tobacco Use Types Packs/Day Years Used Date Smoking Tobacco: Never Assessed Comments Unknown Sex and Gender Information Value Date Recorded Sex Assigned at Female 02/01/2022 10:15 AM EDT Legal Sex Female 10:15 AM EDT Gender Identity Female 02/01/2022 10:15 AM EDT Sexual Orientation Straight 02/01/2022 10 :15 AM EDT Plan of Treatment Health Maintenance Due Date Last Done Comments CT Colonography 1965 Colonoscopy 1965 Colorectal Cancer Screening 1965 Depression Screening 1965 FIT DNA/Cologuard 1965 FIT 1965 FOBT 1965 Sigmoidoscopy 1965 Disability Screening 1965 Alcohol/Substance Use Screening 1977 Tobacco Screening 1977 DTaP/Tdap/Td Vaccines (1 - Tdap) 1984 Hepatitis B Vaccines (1 of 3 - 19+ 3-dose series) 1984 Pap Smear 1986 Cervical Cancer Screening 1995 HPV/Cotest 1995 Mammogram 2005 Pneumococcal Vaccine: 50+ Ye ars (1 of 1 - PCV) 2015 Zoster Vaccines (1 of 2) 2015 COVID-19 Vaccine (2023-2 5 season) 2023 Influenza Vaccine (#1) 2024 RSV Patients and Pa tients Aged 60 years or older (1 - 1-dose 75+ series) 2040 HIB Vaccines Aged Out No longer eligi ble based on patient's age to complete this topic HPV Vaccines Aged Out No longer eligi ble based on patient's age to complete this topic Hepatitis A Vaccines Aged Out No long er eligible based on patient's age to complete this topic IPV Vaccines Aged Out No longer eligi ble based on patient's age to complete this topic Meningococcal B Vaccine Aged Out No l onger eligible based on patient's age to complete this topic Meningococcal Vaccine Aged Out No marcella kamron eligible based on patient's age to complete this topic RSV under 20 months Aged Out No longe r eligible based on patient's age to complete this topic Rotavirus Vaccines Aged Out No longer eligible based on patient's age to complete this topic
[2024-11-07 02:08] LABS: Appearance Urine Clear; Glucose Urine UA Negative (Negative); PH 5.5 (5.0-9.0); Specific Gravity - Urine 1.010 (1.005-1.025); UMIC TRIGGER UACC YES
[2024-11-07 02:37] LABS: Alanine Aminotransferase 14 U/L (0-31); Albumin Level 4.1 g/dL (3.5-5.0); Alkaline Phosphatase 69 U/L (39-117); Anion Gap 12 (12-20); Aspartate Amino Transferase 21 U/L (5-31); Blood Urea Nitrogen 12 mg/dL (9-16); Calcium 8.9 mg/dL (8.4-10.2); Carbon Dioxide 27 mmol/L (22-29); Chloride 105 mmol/L (96-108); Creatinine Clr Calc Pharmacy 94.4; Estimated Glomerular Filt Rate > 60; Lipase 19 U/L (8-78); Magnesium 2.1 mg/dL (1.6-2.6); Potassium 4.0 mmol/L (3.3-5.1); Sodium 140 mmol/L (135-145); Total Protein 8.0 g/dL (6.5-8.0)
[2024-11-07 03:12] VITALS: BP 174/65; PULSE 74; RESP 16; TEMP 36.4; O2SAT 99
[2024-11-07] MEDS: Magnesium Hydrox/Alum Hydrox 30 ML ORAL.SUSP PO (06:30)
[2024-11-07 06:52] VITALS: BP 178/81; PULSE 74; RESP 20; TEMP 36.4; O2SAT 99
--- NOTE | 2024-11-07 07:40 | ED_ITS ---
HPI - Abdominal Pain General Chief Complaint: Abdominal Pain Stated Complaint: abd pain + left side pain Time Seen by Provider: 11/07/24 05:30 Source: patient Mode of arrival: ambulatory Limitations: no limitations History of Present Illness ED Provider: Dr. Cecile Brown HPI narrative: 59-year-old female with a history of hypertension, anemia presenting with lower abdominal pain that is been ongoing since last night. States she felt that she was constipated so she took a stool softener which did not help much. Today developed some nausea and bloating which has been progressively worsening over time. She did have a bowel movement which was normal. No reported hematochezia or melena. Denies vomiting. No reported fever, cough or cold-type symptoms, chest pain, difficulty breathing, known sick contacts, questionable food intake or recent travel. Related Data Home Medications ?Medication ?Instructions ?Recorded ?Confirmed aspirin 81 mg tablet,delayed 1 tab PO DAILY 06/19/20 0 11/05/20 release meclizine 25 mg tablet 1 tab PO TID PRN dizziness 0 06/19/20 11/05/20 Previous Rx's ?Medication ?Instructions ?Recorded ferrous sulfate 325 mg (65 mg 1 tab PO DAILY #30 tabs 06/20/20 iron) tablet furosemide 20 mg tablet (Lasix) 20 mg PO DAILY #30 tab s 09/10/20 lisinopril 10 mg tablet 10 mg PO DAILY 90 days #90 t abs 05/08/21 amlodipine 10 mg tablet 10 mg PO DAILY 90 days #90 t abs 02/09/22 cyclobenzaprine 10 mg tablet 10 mg PO TID PRN muscle s pasm #20 06/27/23 tabs lidocaine 5 % topical patch 1 patch topical DAILY #30 ea 06/27/23 ibuprofen 600 mg tablet 600 mg PO Q6H PRN fever or p ain 10/07/23 #30 tabs tramadol 50 mg tablet 50 mg PO Q6H PRN pain #20 ta bs 10/07/23 meclizine 12.5 mg tablet 12.5 mg PO TID PRN vertigo 5 days 09/18/24 #20 tabs dicyclomine 20 mg tablet 20 mg PO TID #10 tabs Allergies Allergy/AdvReac Type Severity Reaction Status Date / Time No Known Allergies Allergy Verified 11/07/24 01:43 Review of Systems Review of Systems as per HPI, full review of systems performed and negative but for the above mentioned pertinent positives and negatives. [facility] Past Medical History Source: old records reviewed Medical History Essential hypertension Microcytic anemia Hospital discharge follow-up Morbid obesity with BMI of 50.0-59.9, adult Menorrhagia Elevated troponin Vertigo Surgical History Hx of hysterectomy H/O tubal ligation Family History Family History Mother Thyroid disease Father Cancer Other No cardiac disease Social History Social History Household Members: Family Housing: Apartment Do you presently have visiting nurse or other home services: No Alcohol intake: unknown Patient Tobacco Use Status: Never used Tobacco e-Cigarette/Vaping Use: Never Used Second Hand Smoke Exposure: No Advance Directives Date on File: 06/23/20 service: No Current occupational status: employed Current occupation: [employer] Current occupational exposures/hazards: No Physical Exam ED Exam Exam: GENERAL: Ill-Appearing, appears uncomfortable. SKIN: Normal skin color for ethnicity, warm, dry, no rashes noted. HEENT:? Normocephalic, atraumatic, no stridor, dry mucous membranes, dentition intact, EOMI. NECK: Soft, supple, full ROM, midline structures nontender, no step-offs, no deformities, no lymphadenopathy. CHEST: Heart regular rhtyhm, no murmurs, symmetric chest rise and fall. PULMONARY: Clear to auscultation bilaterally, diminished at the bases, no labored breathing, no wheezes/rhales/rhonchi. ABDOMINAL: Softly distended, diffusely tender to palpation without rebound or guarding, quiet bowel sounds in all quadrants. : Deferred. MUSCULOSKELETAL: Normal tone, full range of motion, no deformities, no peripheral edema. NEURO: Alert and oriented x3, CN II through XII intact, equal strength and sensation bilateral upper and lower extremities, no focal neurologic deficits.? PSYCHIATRIC: Flat affect, fluid speech, good eye contact and appropriate demeanor. Vital Signs: Vital Signs - 24 hr 11/07/24 01:37 11/07/24 03:12 11/07/24 06:52 Temperature 97.9 F 97.6 F 97.6 F Pulse Rate 78 74 74 Respiratory Rate 18 16 20 Blood Pressure 165/70 H 174/65 H 178/81 H Pulse Oximetry 99 99 99 Oxygen Delivery Method Room Air Room Air Room Air BMI result Body Mass Index 53.2 Medical Decision Making Medical Decision Making MDM Narrative: This patient presents today with a chief complaint of abdominal pain. Differential diagnosis for this patient is broad.? It includes appendicitis, cholecystitis, bowel obstruction, diverticulitis, peptic ulcer disease, pyelonephritis, vascular pathology, among many others.? A broad-based workup based on history and physical examination was obtained. ? Patient was given dicyclomine, GI cocktail, zofran for pain control. ? Patient feeling improved after medications. X-ray does not show evidence of obstruction. Exam is benign. Using shared decision making, plan for discharge home to follow-up with primary care and/or specialist. Patient understands and agrees with plan for discharge. Discharged home in stable condition. Differential Diagnosis Differential Diagnoses: The differential diagnosis associated with the presentation includes (as above) Admission/Observation Consideration of admission/observation: Escalation of care including admission/observation considered Lab Data [facility] Lab Attestation statement: I reviewed the patient's lab results. 11/07/24 01:59 11/07/24 01:59 Labs: Lab Results 11/07/24 11/07/24 Range/Units 01:56 01:59 WBC 8.8 (4.8-10.8) X10*3/uL RBC 4.35 (4.20-5.50) X10*6/uL Hgb 12.4 (12.0-16.0) g/dl Hct 37.7 (37.0-47.0) % MCV 86.7 (80.0-98.0) fL MCH 28.5 (27.0-33.0) pg MCHC 32.9 (31.0-35.0) g/dl RDW 14.9 (11.0-16.0) % Plt Count 185 (160-400) X10*3/uL MPV 10.8 (9.4-12.3) fL Absolute Nucleated RBC 0.000 (0.0-0.012) X10*3/uL Nucleated RBC % (auto) 0.0 (0.0-0.2) /100WBC Sodium 140 (135-145) mmol/L Potassium 4.0 (3.3-5.1) mmol/L Chloride 105 (96-108) mmol/L Carbon Dioxide 27 (22-29) mmol/L Anion Gap 12 (12-20) BUN 12 (9-16) mg/dL Creatinine 0.87 (0.5-1.4) mg/dL Estim Creat Clear Calc 94.4 Estimated GFR > 60 Random Glucose 115 (60-115) mg/dL Calcium 8.9 (8.4-10.2) mg/dL Magnesium 2.1 (1.6-2.6) mg/dL Total Bilirubin 0.6 (0.0-1.0) mg/dL Direct Bilirubin 0.3 (0.0-0.5) mg/dL AST 21 (5-31) U/L ALT 14 (0-31) U/L Alkaline Phosphatase 69 (39-117) U/L Total Protein 8.0 (6.5-8.0) g/dL Albumin 4.1 (3.5-5.0) g/dL Lipase 19 (8-78) U/L Urine Color Yellow Urine Appearance Clear Urine pH 5.5 (5.0-9.0) Ur Specific [place] 1.010 (1.005-1.025) Urine Protein Negative (Neg-Trace) mg/dL Urine Glucose (UA) Negative (Negative) mg/dL Urine Ketones Negative (Negative) mg/dL Urine Blood Trace H (Negative) Urine Nitrite Negative (Negative) Ur Leukocyte Esterase Negative (Negative) Urine RBC 0-2 (0-2) /HPF Urine WBC 0-5 (0-5) /HPF Ur Squamous Epith Cells 0-2 (0-2) /HPF Urine Bacteria None Seen (None Seen) Hyaline Casts 0-2 (0-2) /LPF Radiology Impression Discussion of test interpretation with radiology: I have reviewed the radiologist's reading. Radiologist Impression: 2 view abdomen, AP chest Comparison: None provided Findings: No consolidation or effusion. The heart size is within normal limits. Normal bowel gas pattern. No pneumoperitoneum or pneumatosis. There are no acute fractures. IMPRESSION: No acute findings. This document has been electronically signed by: Carlos Zheng on 11/07/2024 07:36:34 Prescription Management I considered prescription management with: Pain Medication Chronic Conditions Patient?s care impacted by: Other (anemia) Medications Administered Discontinued Medications Generic Name Dose Route Start Last Admin Trade Name Jaylin PRN Reason Stop Dose Admin Al Hydroxide/Mg Hydroxide 30 ml 11/07/24 06:21 11/07/24 06:30 Magnesium Hydrox/Alum Hydrox 30 Ml Oral.Susp PO 11/07/24 06:22 30 ml ONCE ONE Administration Dicyclomine HCl 20 mg 11/07/24 06:21 11/07/24 06:31 Dicyclomine Hcl 10 Mg Capsule PO 11/07/24 06:22 20 mg ONCE ONE Administration Ondansetron HCl 4 mg 11/07/24 06:21 11/07/24 07:34 Ondansetron Odt 4 Mg Tab.Zinadis TRANSLINGU 11/07/24 06:22 Not Given ONCE ONE Discharge Plan Discharge Clinical Impression: Abdominal bloating, Abdominal gas pain, Chronic constipation Patient Disposition: Home, Self-Care Instructions: Gas and Bloating (ED) Additional Instructions: DIAGNOSIS & TREATMENT: You were seen in the Emergency Department for your abdominal pain. We performed hematocrit lab work and a x-ray of your abdomen which did not reveal any acute abnormalities that would explain your symptoms. FURTHER CARE: We have not found any emergent physical exam or lab abnormalities that would require admission to the hospital today. Many people who come to the ER with abdominal pain do not leave with a specific diagnosis at the end of their visit. In the Emergency Department we try to make sure that there is no emergent problem that needs surgery or antibiotics right now. This does not mean that your evaluation is complete--please be sure to follow up with your regular doctor as additional testing as an outpatient may be indicated Please be certain to drink plenty of fluids over the next several. You should advance your diet as tolerated. You may wish to start with the BRAT diet (bananas, rice, applesauce, toast). WHEN YOU SHOULD BE SEEN NEXT: Please follow-up with your primary care provider within the next 2-3 days for reevaluation of your symptoms. WHEN TO RETURN TO THE ED: Monitor your symptoms closely and return to the emergency department immediately for any new/worsening symptoms, worsening abdominal pain, pain which changes location (particularly if it moved to the right lower quadrant), nausea, vomiting, blood in your stool, black/tarry stools, chest pain, shortness of breath, fevers, chills, night sweats, you are unable to arrange follow-up care, or any other concerning symptoms. Prescriptions: New dicyclomine 20 mg tablet 20 mg PO TID Qty: 10 0RF No Action furosemide [Lasix] 20 mg tablet 20 mg PO DAILY Qty: 30 6RF lisinopril 10 mg tablet 10 mg PO DAILY 90 Days Qty: 90 1RF amlodipine 10 mg tablet 10 mg PO DAILY 90 Days Qty: 90 1RF aspirin 81 mg tablet,delayed release (DR/EC) 1 tab PO DAILY meclizine 25 mg tablet 1 tab PO TID PRN (Reason: dizziness) ferrous sulfate 325 mg (65 mg iron) tablet 1 tab PO DAILY Qty: 30 0RF cyclobenzaprine 10 mg tablet 10 mg PO TID PRN (Reason: muscle spasm) Qty: 20 0RF lidocaine 5 % adhesive patch,medicated 1 patch topical DAILY Qty: 30 0RF Rx Instructions: leave on most painful area for up to 12 hrs tramadol 50 mg tablet 50 mg PO Q6H PRN (Reason: pain) Qty: 20 0RF ibuprofen 600 mg tablet 600 mg PO Q6H PRN (Reason: fever or pain) Qty: 30 0RF meclizine 12.5 mg tablet 12.5 mg PO TID PRN (Reason: vertigo) 5 Days Qty: 20 0RF Stand Alone Forms: Work/School Release Interventions: ED Discharge Assessment Last Done: 11/07/24 08:11 Discharge Date/Time: 11/07/24 08:12 Print Language: [place] Island[place]
[2024-11-07 08:11] VITALS: BP 172/61; PULSE 64; RESP 14; TEMP 36.4; O2SAT 100
== END 2024-11-07 08:12 | disposition home or self-care (01) ==
PROVIDERS: Emergency Provider Emergency Medicine; PCP Internal Medicine
DX: K59.00 Constipation, unspecified (principal); R10.30 Lower abdominal pain, unspecified; R14.0 Abdominal distension (gaseous); R94.31 Abnormal electrocardiogram [ECG] [EKG]; Z79.899 Other long term (current) drug therapy
CPT/HCPCS: 36415; 74022; 80053; 81001; 82248; 83690; 83735; 85027; 93005; 99283; 99284

== ENCOUNTER → 2024-11-07 03:22 | Outpatient (BNV) | payer SELFPAY | PROVIDERS: Emergency Provider Emergency Medicine; PCP Internal Medicine; Visit Provider Internal Medicine | DX: R10.9 Unspecified abdominal pain (principal) | CPT/HCPCS: 93010 ==

== ENCOUNTER → 2024-11-07 05:31 | Outpatient (BNV) | payer SELFPAY | PROVIDERS: Emergency Provider Emergency Medicine; PCP Internal Medicine; Visit Provider Radiology Vascular & Interventional Radiology | DX: R10.32 Left lower quadrant pain (principal) | CPT/HCPCS: 74022 ==